=== PATIENT | female | born 1960 | race Caucasian/White ===

== ENCOUNTER 2022-01-02 15:29 | Day surgery (SDC) | payer BC, SELFPAY ==
[2022-01-02] VITALS (11 sets, daily range): BP systolic 144–177; BP diastolic 70–89; PULSE 78–90; RESP 14–20; TEMP 36.2–37.1; O2SAT 91–98; BMI 31.3
--- NOTE | 2022-01-02 15:32 | PC.NURSE ---
Dr. Don has been notified that patient has arrived from [facility] to [facility] ED
--- NOTE | 2022-01-02 15:37 | PC.NURSE ---
ED MD at
--- NOTE | 2022-01-02 15:40 | PC.NURSE ---
Dr. Don at BS
--- NOTE | 2022-01-02 15:42 | PC.NURSE ---
House notified of patient going to OR for scope
--- NOTE | 2022-01-02 15:54 | HMH.EDGENADL ---
ED Disposition Clinical Impression: Food impaction of esophagus Qualifiers: Encounter type: initial encounter Qualified Code(s): T18.128A - Food in esophagus causing other injury, initial encounter Disposition: Still a Patient Condition on Discharge: Fair Referrals: Pal Shin MD [Primary Care Provider] - - Critical Care Critical Care Time: No Attestation: On , the high probability of a clinically significant, sudden or life threatening deterioration of the following system(s) required my full and direct attention, intervention and personal management. The time I documented below is in addition to time spent performing reported procedures but includes the following listed in this critical care notation. Medical Decision Making - Medical Records Medical records reviewed: Yes: I reviewed the patient's medical records. - Brandyn Inquiry Pt receiving controlled substance: No Vital Signs: 01/02/22 15:39 Temperature 98.2 F Temperature Source Oral Pulse Rate [Left Radial] 82 Respiratory Rate 17 Blood Pressure [Right Arm] 146/82 H Blood Pressure Mean [Right Arm] 103 02 Sat by Pulse Oximetry 96 Oxygen Delivery Method Room Air Orders (Tests/Meds): ED MEDICATIONS Generic Name Dose Route Start Last Admin Trade Name Freq PRN Reason Stop Dose Admin Sodium Chloride 1,000 mls @ 999 mls/hr 01/02/22 15:45 Sod Chlor 0.9% 1000ml Bag IV 01/02/22 16:45 .Q1H1M ALIREZA Sodium Chloride 8 ml 01/02/22 15:39 Sodium Chloride 0.9% 10ml Vial IV 02/01/22 15:38 NEEDED PRN dilute pepcid Discontinued Medications Generic Name Dose Route Start Last Admin Trade Name Freq PRN Reason Stop Dose Admin Famotidine 20 mg 01/02/22 15:39 Famotidine 20mg/2ml Vial IV 01/02/22 15:40 ONCE ONE Ondansetron HCl 4 mg 01/02/22 15:39 Ondansetron 4mg/2ml Vial IV 01/02/22 15:40 ONCE ONE ORDERS Category Date Time Status Complete Blood Count Auto Diff Stat Lab 01/02/22 15:39 Ordered Comprehensive Metabolic Panel Stat Lab 01/02/22 15:39 Ordered Lipase Stat Lab 01/02/22 15:39 Ordered Medical Decision Narrative: 61-year-old female presenting with impacted food bolus. General surgery is at bedside. They will be taken the patient to the OR for endoscopy. Patient was made aware of these findings. Patient be transferred to the OR for further evaluation and treatment. General Adult HPI - General Chief complaint: Recheck/Abnormal Lab/Rx Stated complaint: vomiting,diarrhea Time Seen by Provider: 01/02/22 15:45 Mode of Arrival: Ambulatory Limitations: No Limitations Description of Symptoms (Recalled from ER Triage Doc. by RN): pt to the ed transferred from [facility]. pt states thursday evening she was eating steak and it got caught in her throat. pt states she has not been able to keep food or liquid down since thursday. pt denies trouble breathing or tightness in her throat. pt states she has has breif periods of trouble swallowing. - History of Present Illness HPI narrative: 61-year-old female presented to the emergency department with a suspected impacted food bolus. Patient was eating steak on Thursday when she felt some discomfort in her epigastric region. Patient has had multiple issues with impacted food boluses and strictures before in the past. Patient was actually seen at outlying facility and was sent here after speaking with surgery on-call for intervention. Patient arrives still continued epigastric discomfort. She is not able to tolerate oral intake. Mildly nauseous. Denies any headache or change in vision. No focal weakness. No chest pain or shortness of breath. No fevers or chills. - Related Data Previous Rx's Medication Instructions Recorded ondansetron HCl 4 mg tablet 4 mg PO TID PRN #60 tab 12/19/21 pantoprazole 40 mg tablet,delayed 40 mg PO DAILY #90 tab 12/19/21 release Allergies Allergy/AdvReac Type Severity Reaction Status Date
--- NOTE | 2022-01-02 16:06 | PC.NURSE ---
patient changed into gown and all belongings are in a bag with patients family.
--- NOTE | 2022-01-02 16:12 | PC.NURSE ---
ISA Mills at BS
[2022-01-02 16:13] LABS: Coronavirus 19, PCR Not Detected (NotDetected); Influenza A, PCR Not Detected (NotDetected); Influenza B, PCR Not Detected (NotDetected)
--- NOTE | 2022-01-02 16:14 | ECG_ITS ---
APPROVED REPORT Exam: Resting ECG HR:71 bpm ECG Measurements Heart Rate 71 AXES NE 138 P 63 QRSd 87 QRS 31 QT 417 T 46 QTc 440 Conclusion SINUS RHYTHM WITH SINUS ARRHYTHMIA MODERATE ST DEPRESSION [0.05+ mV ST DEPRESSION] ABNORMAL ECG UNCONFIRMED REPORT Electronically signed by : William Dejesus MD 01/04/2022 07:55:17
--- NOTE | 2022-01-02 17:09 | P.PCN_ITS ---
- Procedure: Date: 01/02/22 Patient Date of :: 1960 Procedure Performed:: Esophagogastroduodenoscopy Indications:: Patient is a 61-year-old female from [facility]. Primary care provider is William Shin. She states that for about a year she has had symptoms that whenever she eats anything she has difficulty with development of hiccups. She often has regurgitation and vomiting. This often last for about 12 hours. She does state that she is able to tolerate sweets. 2 days ago on 12/31/2021 she was eating steak. She has been unable to tolerate anything orally since then. She presented to [facility] in [place]. She had symptoms consistent with esophageal obstruction. Apparently there is no gastroenterology availability. Surgery was then contacted at this facility to evaluate the patient. Arrangements were made for transfer for management of esophageal obstruction. Of note, the patient was scheduled for EGD electively with Dr. Villalobos on 01/28/2022 for the symptoms as well as screening colonoscopy. Performing Provider:: Rickey Don MD Referring Provider:: William Shin MD Sedation:: General endotracheal anesthesia Procedure:: Patient was seen and examined in the emergency department. Arrangements were made for emergent endoscopy after hours. Given the longstanding duration of possible esophageal obstruction plan was made to perform this in the operating room under general anesthesia. Patient was taken to the operating room. She was maintained on the stretcher. General anesthesia was induced via endotracheal tube. Olympus endoscope was inserted via the oropharynx. Esophagus was cannulated. Overall esophagus appeared normal. Gastroesophageal junction was actually encountered at approximately 39 cm from the incisors. Just proximal to this there was a focal ring of erosive esophagitis. However there was no evidence of any obstruction or retained food bolus. Stomach was easily cannulated. There is some minor nonerosive linear gastropathy of the antrum. Stomach was desufflated and the endoscope was withdrawn. Findings:: Focal erosive esophagitis at approximately 37 to 38 cm with gastroesophageal junction at 39 cm. No esophageal food impaction/obstruction. Recommendations:: Biopsies were not performed and dilatation was not performed in this emergent setting after hours. Recommend limited diet. If patient is not on antacids needs proton pump inhibitors. Recommend repeat EGD in several weeks as an elective procedure for biopsies and possible dilatation. Complications:: None immediately apparent Estimated blood obtained (mL): 0
--- NOTE | 2022-01-02 17:15 | HMH.ANESCL ---
[facility] Anesthesia Checklist - Patient Identification Patient Identification: Arm Band - Structural Data Admitted From: Emergency Dept Planned Operative Procedure/s: EGD Consent for Planned Operative Procedure(s) Verified: Yes Verified Documents: Surgical Consent, History and Physical - NPO Status Verified Time NPO: 00:00 - Additional verifications Anesthesia Reactions: No - Airway Assessment C-Spine Mobility Assessed: Yes (mp2) TMJ Mobility Assessed: Yes Dentition: Good Dentition - Neurological Assessment Level of Consciousness: Awake, Alert - Anesthesia Plan Anesthesia Risk discussed: Yes Anesthesia Plan: Verified ASA Class: II (e) Anesthesia Type: General (Discussed plan of care with Dr. Don and Pt. It was decided to do procedure under GA d/t length of time food had been in esophagus and risk of aspiration. All in agreeance) [facility] History I have reviewed the patient's past medical history: Yes Medical History: Reports:: Atrial Fibrillation *Have you ever received a pneumonia vaccine?: No *Have you received a flu vaccine this season?: No Other Medical History: Reports: Other (Fatty liver) Anesthesia experience/problems:: nac Other Surgeries: Yes: Hysterectomy-Total Amputation: No Fractures: No - *Social History Smoking Status: Never smoker Alcohol Intake: never Substance Use Type: denies use *Occupational Status:: employed *Travel in the last 8 weeks: None Family Hx:: Heart Attack (FATHER & GRANDMOTHERS), Other (Arthritis (BROTHER)), Asthma (MOTHER)
--- NOTE | 2022-01-02 17:17 | P.PN_ITS ---
[facility] Anesthesia Record Part I Intake, IV Amount: 500 Estimated blood loss (mL): 0 Urine output (mL): 0 Blood Pressure: 146/78 SaO2: 94 Pulse Rate: 90 Respiratory Rate: 16 Temperature: 97.9 F Patient is:: Drowsy, Stable Stable to PACU at:: 17:10
--- NOTE | 2022-01-03 07:30 | HMH.ANESII ---
[facility] Anesthesia Record Part II Discharge Time: 17:40 Destination: Surgical Day Care (OP Surgery) PACU nurse assessment reviewed?: Yes Patient Condition:: Good Anesthesia Complications:: None Swallowing reflex intact?: Yes Cyanosis?: No Blood Pressure: 157/84 Pulse Rate: 78 Temperature: 98.8 F Mental Status: Alert & Oriented Pain level:: 0 Nausea and/or vomitting:: None Intake, IV Amount: 0
[2022-01-03 07:31] VITALS: BP 157/84; PULSE 78; TEMP 37.1
== END 2022-01-02 18:11 | disposition home or self-care (01) ==
LOC: ER 16:56 → SDC 16:58
PROVIDERS: Emergency Provider Emergency Medicine; PCP Family Medicine; Visit Provider Surgery
PROC: 0DJ08ZZ Inspection of Upper Intestinal Tract, Via Natural or Artificial Opening Endoscopic (ICD-10-PCS; CPT 43235; principal; 2022-01-02 17:00)
DX: K22.10 Ulcer of esophagus without bleeding (principal); I48.91 Unspecified atrial fibrillation; K76.0 Fatty (change of) liver, not elsewhere classified; Z90.710 Acquired absence of both cervix and uterus; Z82.3 Family history of stroke; Z82.61 Family history of arthritis; Z82.5 Family history of asthma and other chronic lower respiratory diseases
CPT/HCPCS: 43235; 93005; 96375; C9803; J0330; J2405; U0003; U0005

== ENCOUNTER → 2022-04-03 12:06 | Outpatient (CLI) | payer BC, SELFPAY | PROVIDERS: PCP Family Medicine; Visit Provider Surgery | DX: Z01.812 Encounter for preprocedural laboratory examination (principal); Z20.822 Contact with and (suspected) exposure to COVID-19; Z13.810 Encounter for screening for upper gastrointestinal disorder; Z12.11 Encounter for screening for malignant neoplasm of colon | CPT/HCPCS: C9803; U0003; U0005 ==

== ENCOUNTER 2022-04-04 12:44 | Observation (INO) | payer BC, OTHER, SELFPAY ==
[2022-04-01 14:15] VITALS: BMI 30.5
[2022-04-04] VITALS (16 sets, daily range): BP systolic 112–145; BP diastolic 61–82; PULSE 53–77; RESP 13–19; TEMP 35.7–37; O2SAT 95–99; BMI 31.3
--- NOTE | 2022-04-04 10:56 | HMH.GSHP ---
HPI HPI: Patient presents for followup endoscopy for dysphagia and colonoscopy for screening. She is a 61-year-old female from [facility]. Her primary care provider is William Shin MD. She has had some symptoms for about a year with apparent development of hiccups occurring postprandially with occasional regurgitation and vomiting. This often last for about 12 hours. She had been scheduled for outpatient EGD and colonoscopy by Dr. Villalobos. However, she had presented to [facility] in [place] on 01/02/2022 with symptoms of possible esophageal obstruction for a duration of 2 days after she had been eating steak on 12/31/2021. Apparently there was no gastroenterology or surgical availability in [place]. Surgery at this facility was then contacted to evaluate the patient and arrangements were made for transfer for management of presumed esophageal obstruction. Patient was taken emergently for EGD after hours in the evening of 01/02/2022. Given the duration of her symptoms and emergent nature this was done in the operating room under general anesthesia via endotracheal tube. She was found to have no evidence of any esophageal obstruction. She did have some focal erosive esophagitis at approximately 37 to 38 cm from the incisors with gastroesophageal junction at 39 cm. Erosion may have been secondary to transient retained food bolus. She also has some minor nonerosive linear gastropathy. Given the emergent nature of this biopsies and intervention such as dilatation was not performed. Patient has apparently been on pantoprazole. She has some minor symptoms mostly of cervical dysphagia. Her colonoscopy was being scheduled for initial screening purposes. I advocated a follow-up endoscopy as an elective procedure with biopsies and possible dilatation. I also discussed with her the indications for colonoscopy for screening purposes. [facility] History I have reviewed the patient's past medical history: Yes Medical History: Reports:: Atrial Fibrillation Denies:: Cancer, Diabetes Mellitus Type 1, Diabetes Mellitus Type 2, Internal Pacemaker, MRSA *Have you ever received a pneumonia vaccine?: No *Have you received a flu vaccine this season?: No Other Medical History: Reports: Other Laterality Cases: Bilateral: Tonsillectomy Other Surgeries: Yes: EGD, Hysterectomy-Total. No: Pacemaker Amputation: No Fractures: No - *Social History Last grade of school completed: GED Smoking Status: Never smoker Alcohol Intake: never Substance Use Type: denies use *Occupational Status:: employed *Travel in the last 8 weeks: None Family Hx:: Heart Attack, Other, Asthma Review of Systems - Review of Systems Review of systems:: pertinent systems reviewed and negative unless documented below Meds Home Medications Medication Instructions Recorded Confirmed Type Pantoprazole Sodium 40 mg PO DAILY 01/23/22 04/04/22 History Allergies Allergy/AdvReac Type Severity Reaction Status Date / Time No Known Allergies Allergy Verified 04/01/22 14:23 Exam I & O for Last 24 hours: Intake & Output 04/01/22 04/02/22 04/03/22 04/04/22 11:59 11:59 11:59 11:59 Weight 195 lb - Constitutional no acute distress - *Routine HEENT Exam Head: Present: normocephalic Eye: Present: EOMI, PERRL ENT: Present: mucous membranes moist - *Routine Neck Exam Present: supple. Absent: lymphadenopathy - *Routine Respiratory Exam Present: CTA bilaterally - *Routine Cardiovascular Exam Present: RRR - *Routine Abdominal Exam Present: soft, normoactive bowel sounds. Absent: tenderness - *Routine Rectal Exam Rectal:: deferred - *Routine Genitalia Exam Genitalia:: deferred - *Routine Extremities Exam Absent: cyanosis, clubbing, edema - *Routine Skin Exam Present: warm. Absent: rash - *Routine Neurological Exam Present: alert, oriented X3 Assessment and Plan - Assessment and plan all Dx Assessment and Plan for all problems::
--- NOTE | 2022-04-04 11:53 | ECG_ITS ---
APPROVED REPORT Exam: Resting ECG HR:160 bpm ECG Measurements Heart Rate 160 AXES QRSd 82 QRS 21 QT 221 T 0 QTc 310 Conclusion ATRIAL FIBRILLATION WITH RAPID VENTRICULAR RESPONSE MARKED ST DEPRESSION, CONSIDER SUBENDOCARDIAL INJURY [0.2+ mV ST DEPRESSION] ACUTE AR UNCONFIRMED REPORT Electronically signed by : William Dejesus MD 04/04/2022 21:39:27
--- NOTE | 2022-04-04 11:55 | XR_ITS ---
FINAL REPORT CLINICAL HISTORY: POSSIBLE ASPIRATION; AFIB FINDINGS: A single portable view of the chest was obtained. The heart size and pulmonary vascularity are within normal limits. The mediastinum is within normal limits. There is mild right lung base atelectasis or pneumonia. The bony thorax is intact. IMPRESSION: Mild right lung base atelectasis or pneumonia. Reviewed, Interpreted and Dictated by Rickey Patel III, MD Transcribed by Delmis Crews Authenticated and [facility]
--- NOTE | 2022-04-04 12:22 | HMH.SCOPE ---
- Procedure: Date: 04/04/22 Patient Date of :: 1960 Procedure Performed:: Esophagogastroduodenoscopy with biopsies and dilatation Indications:: Patient presents for followup endoscopy for dysphagia and colonoscopy for screening. She is a 61-year-old female from [facility]. Her primary care provider is William Shin MD. She has had some symptoms for about a year with apparent development of hiccups occurring postprandially with occasional regurgitation and vomiting. This often last for about 12 hours. She had been scheduled for outpatient EGD and colonoscopy by Dr. Villalobos. However, she had presented to [facility] in [place] on 01/02/2022 with symptoms of possible esophageal obstruction for a duration of 2 days after she had been eating steak on 12/31/2021. Apparently there was no gastroenterology or surgical availability in [place]. Surgery at this facility was then contacted to evaluate the patient and arrangements were made for transfer for management of presumed esophageal obstruction. Patient was taken emergently for EGD after hours in the evening of 01/02/2022. Given the duration of her symptoms and emergent nature this was done in the operating room under general anesthesia via endotracheal tube. She was found to have no evidence of any esophageal obstruction. She did have some focal erosive esophagitis at approximately 37 to 38 cm from the incisors with gastroesophageal junction at 39 cm. Erosion may have been secondary to transient retained food bolus. She also has some minor nonerosive linear gastropathy. Given the emergent nature of this biopsies and intervention such as dilatation was not performed. Patient has apparently been on pantoprazole. She has some minor symptoms mostly of cervical dysphagia. Her colonoscopy was being scheduled for initial screening purposes. I advocated a follow-up endoscopy as an elective procedure with biopsies and possible dilatation. I also discussed with her the indications for colonoscopy for screening purposes. Performing Provider:: Rickey Don MD Referring Provider:: William Shin MD Sedation:: MAC sedation Procedure:: Patient was taken to endoscopy procedure room. She was positioned in lateral decubitus position. Adequate intravenous sedation was achieved with anesthesia titration of propofol. Olympus endoscope was inserted via the oropharynx. Esophagus was cannulated. There was some minor cricopharyngeal spasm. There is minor tortuosity of the esophagus consistent with possible mild esophageal dysmotility. Gastroesophageal junction was encountered at approximately 39 cm. There was a minor Schatzki's ring and some distal esophagitis. Stomach was cannulated and insufflated. Retroflexion revealed no evidence of any appreciable hiatal hernia. She had some mild to moderate nonerosive diffuse gastropathy/gastritis. Gastric antral mucosal biopsy was obtained for CLOtest for H. pylori. Pylorus was traversed. In the duodenal bulb there was some minor nonerosive duodenitis. Minimal biopsy was performed. Hemoclip was placed for good hemostasis. Endoscope was then withdrawn into the stomach. Gastric mucosal biopsies obtained for histopathologic analysis. Endoscope was withdrawn into the distal esophagus. A couple biopsies were obtained at the region of esophagitis/Schatzki's ring. The Schatzki's ring was then sequentially dilated from 18 to 19 to 20 mm luminal diameter with the elation balloon dilator slowly. Please note at the completion of dilatation patient was noted to show evidence of tachycardia consistent with atrial fibrillation with rapid ventricular response. The stomach was desufflated and the endoscope was withdrawn. Patient was allowed to recover from anesthesia. She underwent twelve-lead EKG in the endoscopy room as well as portable chest x-ray. Cardiology consultation was obtained and patient was administered appropriate medications.
--- NOTE | 2022-04-04 12:36 | SUR.OPER ---
1145-Ended EGD, HR 160's-170's. monitor showing A-Fib. Payal Ramesh CRNA and Dr. Don at bedside directing care. RN x2 remain at bedside. 1153-EKG ordered per German Webster CRNA called to bedside. 1154 Respiratory at bedside for EKG. PCX ordered per Dr. Don. 1155-EKG completed and Dr. Sharma notified by respiratory. 1155-Dr. Sharma and radiology at bedside. Marianna He RN, Lily Becerra RN, Jennifer Adler RN at bedside. A-Fib noted by Dr. Sharma and directing medications to be given per anesthesia and advising Dr. Don. Pt awake, alert and oriented with no c/o of CP or SOA. Skin pink and dry. 1200-Dr. Don cancelled colonoscopy. Family updated on pt status. 1203- Dr. Don notified PCP, Dr. Shin and awaiting further orders. 1215- Dr. Sharma ordered Diltiazem drip started per Vel Doss CRNA. Pt continues to be on heart monitor, VSS. 1230 Pt transferred to post op on heart monitor for continued monitoring until further orders given. Report given to Adriana Robles RN. Family updated by German Doss CRNA and at bedside.
--- NOTE | 2022-04-04 12:36 | SUR.PHASEII ---
1230- Detailed report received from ISA Corrales. Pt currently resting in bed. A&Ox4. Pt currently in controlled afib rate of 78. Dilt gtt infusing at 15mcg/min. 1238- Spoke to Circulation Assistant Joel Porras RN. Room assignment- pt is going to room 216 1239- MD Don at bedside. Pt noted to convert to NR/sinus aleida. Rate of 54. Respiratory notified for STAT EKG 1243- RT at bedside
--- NOTE | 2022-04-04 12:46 | ECG_ITS ---
APPROVED REPORT Exam: Resting ECG HR:57 bpm ECG Measurements Heart Rate 57 AXES AL 154 P 46 QRSd 82 QRS 8 QT 420 T 39 QTc 413 Conclusion SINUS BRADYCARDIA BORDERLINE ECG UNCONFIRMED REPORT Electronically signed by : William Dejesus MD 04/04/2022 21:39:21
--- NOTE | 2022-04-04 12:48 | P.CONPHA_ITS ---
[facility] Pharmacy VTE Monitoring - Patient Demographics Admission date: 04/04/22 Report Date: 04/04/22 Time: 12:48 Allergies/Adverse Reactions: Patient Allergies No Known Allergies Allergy (Verified 04/01/22 14:23) Height: 1.7 m Weight: 88.451 kg - Prophylaxis VTE Prophylaxis Ordered?: Yes Types of VTE Prophylaxis: TEDS Knee High Location of Applied Device: Bilateral Lower Extremeties
--- NOTE | 2022-04-04 12:48 | HMH.PHAINT ---
MEDICATION RECONCILIATION COMPLETED ON PATIENT USING EXTERNAL FILL HISTORY FROM PHARMACY. -TAMIA BILLS, KIRTD
--- NOTE | 2022-04-04 13:03 | P.PN_ITS ---
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.: Yes Urinary Incontinence: None - Anesthesia Plan Anesthesia Risk discussed: Yes ASA Class: II Anesthesia Type: IV sedation [facility] History I have reviewed the patient's past medical history: Yes Medical History: Reports:: Arrhythmia, Atrial Fibrillation Denies:: Cancer, Diabetes Mellitus Type 1, Diabetes Mellitus Type 2, Internal Pacemaker, MRSA, Seizures *Have you ever received a pneumonia vaccine?: No *Have you received a flu vaccine this season?: No Other Medical History: Reports: Other Anesthesia experience/problems:: NAC Laterality Cases: Bilateral: Tonsillectomy Other Surgeries: Yes: EGD, Hysterectomy-Total. No: Pacemaker Amputation: No Fractures: No - *Social History Last grade of school completed: GED Smoking Status: Never smoker Alcohol Intake: never Substance Use Type: denies use *Occupational Status:: employed *Travel in the last 8 weeks: None Family Hx:: Heart Attack, Other, Asthma
--- NOTE | 2022-04-04 13:31 | SUR.PHASEII ---
1250- Spoke to Jennifer Hamlin APRN notified of pt converting to sinus aleida. Defer to cardiology for additional orders 1255- Spoke to Joel Hylton APRN TO for 120mg of PO dilt x1 NOW. 1310- PO dilt administered at this time 1320- Detailed report given to Alanna Ramos RN 1325- Pt transported to room 216 by this RN and Lily Becerra RN. Family at bedside, all questions answered.
--- NOTE | 2022-04-04 14:00 | P.CONS_ITS ---
History of Present Illness Consult date: 04/04/22 Consult reason: atrial fibrillation Chief complaint: of A. fib Additional Medical History:: Significant past medical history: Proximal A. fib 1 episode followed by Simone Fuentes Gastric reflux History of present illness: 61 year old white female with above past medical history presented outpatient for EGD and developed A. fib RVR with rate of 160 during procedure. Patient reports she does have a history of 1 previous episode of A. fib has been evaluated by Dr. Simone Fuentes cardiology and states they were unable to find any cause of the A. fib. Patient was started on dilt drip and has since converted to normal sinus rhythm. She denies any chest pain shortness of breath palpitations or lower extremity edema. [facility] History Medical History: Reports:: Arrhythmia, Atrial Fibrillation Denies:: Cancer, Diabetes Mellitus Type 1, Diabetes Mellitus Type 2, Internal Pacemaker, MRSA, Seizures *Have you ever received a pneumonia vaccine?: No *Have you received a flu vaccine this season?: No Other Medical History: Reports: Other Anesthesia experience/problems:: NAC Laterality Cases: Bilateral: Tonsillectomy Other Surgeries: Yes: EGD, Hysterectomy-Total. No: Pacemaker Amputation: No Fractures: No - *Social History Last grade of school completed: GED Smoking Status: Never smoker Alcohol Intake: never Substance Use Type: denies use *Occupational Status:: employed *Travel in the last 8 weeks: None Family Hx:: Heart Attack, Other, Asthma Meds Home Medications Medication Instructions Recorded Confirmed Type Pantoprazole Sodium 40 mg PO DAILY 01/23/22 04/04/22 History Allergies Allergy/AdvReac Type Severity Reaction Status Date / Time No Known Allergies Allergy Verified 04/01/22 14:23 Exam Vital signs and Labs for Last 24 Hours: Temp Pulse Resp BP Pulse Ox 98.5 F 77 18 145/82 H 98 04/04/22 10:56 04/04/22 10:56 04/04/22 10:56 04/04/22 10:56 04/04/22 10:56 I & O for Last 24 hours: Intake & Output 04/01/22 04/02/22 04/03/22 04/04/22 23:59 23:59 23:59 23:59 Intake Total 240 / 240 Balance 240 / 240 Weight 195 lb - *Routine Respiratory Exam Present: CTA bilaterally - *Routine Cardiovascular Exam Present: RRR - *Routine Extremities Exam Absent: cyanosis, clubbing, edema Review of Systems - *Cardiovascular Denies chest pain, Denies shortness of breath Assessment and Plan (1) A-fib Status: Acute Category: Medical Code(s): I48.91 - Unspecified atrial fibrillation - Assessment and plan all Dx Assessment and Plan for all problems:: Paroxysmal Afib Chadsvasc score 1 -Converted to normal sinus rhythm with dilt drip. -Start diltiazem extended release 120 mg daily -Echo pending CV summary: If remains in normal sinus rhythm and echo is normal patient can be DC'd home in the a.m. on diltiazem 120 mg daily with 1 week office follow-up.
--- NOTE | 2022-04-04 14:11 | CA_ITS ---
APPROVED REPORT EXAM: Comprehensive 2D, Doppler, and color-flow Echocardiogram Load Out Supervisor: Mira Ruggiero RVT Ht: 5 ft 7 in Wt: 195lbs BSA: 2.00 BP: 145/82 mmHg Indications: A-FIB DURING SCOPE 2D Dimensions LVOT 2.06 cm (M/F) 1.5-2.5 LA Volume 44.70 mL LA Volume Index 22.35 mL/m2 (M/F) 16-34 M-Mode Dimensions RVDd 2.05 cm (0.9-2.6) LA Diam 4.17 cm (1.9-4.0) LVDd 5.09 cm (3.5-5.7) Ao Diam 3.14 cm (2.0-3.7) LVDs 3.72 cm (3.5-5.7) IVSd 0.93 cm (0.6-1.1) PWd 0.82 cm (0.6-1.1) EF (Teich) 52.20% FS 26.90% EDV (Teich) 123.20 mL TAPSE 2.30 (<1.7) ESV (Teich) 58.90 mL LV Diastology E Decel Time 193.00 (160-240 msec) E/A Ratio 1.1 MED E' 7.70 (< 7 cm/sec) E'/MED E' Ratio 10.53 (>14) LAT E' 10.50 (<10 cm/sec) E/LAT E' Ratio 7.72 (>14) Aortic Valve AO Peak GR. 6.30 mmHg Mitral Valve MV E Max Ten. 81.00 (40-130 cm/s) MV A Velocity 74.00 (40-130 cm/s) E/A Ratio 1.09 MV Decel. Time 193.00 (160-240 ms) MV PHT 57.00 ms Pulmonary Valve PV Peak Velocity 73.00 (50-150 cm/s) Tricuspid Valve TR P. Velocity 160.00 cm/s RAP Estimate 10.00 mmHg RVSP 20.20 mmHg Left Ventricle Left atrium is normal size, left ventricle is normal size, estimated ejection fraction 55% with no regional wall motion abnormality, diastolic parameters are within normal range. Right Ventricle Right atrium and right ventricle are normal size and contractility. Aortic Valve Aortic valve is minimally thickened and fibrosed there is no aortic stenosis or aortic insufficiency. Mitral Valve Mitral valve is grossly normal, there is trace mitral regurgitation. Tricuspid Valve Tricuspid valve grossly normal, there is trace tricuspid regurgitation, tricuspid regurgitation jet velocity is inadequate for calculation of the right ventricular systolic pressure. Pulmonic Valve Pulmonic valve is poorly visualized. Great Vessels Aortic root is normal size. Inferior vena cava is mildly dilated without significant inspiratory collapse. Pericardium No significant pericardial effusion noted. Conclusion 1. Normal left ventricular size, preserved left ventricular systolic function, estimated ejection fraction 55% with no regional wall motion abnormality, diastolic parameters are within normal range. 2. Trace mitral and tricuspid regurgitation. 3. No significant pericardial effusion noted. 4. Inferior vena cava is mildly dilated without significant inspiratory collapse. Electronically signed by : Cesar Du MD 04/04/2022 15:06:19
--- NOTE | 2022-04-04 14:23 | PC.NURSE ---
Diltiazem gtt turned OFF at this time. NSR with rate 60s on tele.
--- NOTE | 2022-04-04 18:07 | PC.NURSE ---
Addendum entered by Nile Serna 04/04/22 18:11: LR Infusing at 100ml/hr Original Note: Patient alert and oriented x4, patient admitted from surgery post-op due to going into a-fib, started on a cardizem gtt, and converted to normal sinus rhythm, hr 68, bp 126/70, cardizem gtt currently stopped. Up without assistance, no complaints at this time. VSS on room air with O2 sat 96%. Tolerating a cardiac diet.
[2022-04-05] VITALS: BP 132/73; PULSE 61; PULSE 66; RESP 16; O2SAT 97
[2022-04-05 02:00] VITALS: BP 94/42; PULSE 60; RESP 20; O2SAT 95
[2022-04-05 04:00] VITALS: TEMP 36.9
[2022-04-05 04:26] VITALS: BMI 31.7
[2022-04-05 06:00] VITALS: BP 143/101; PULSE 59; PULSE 60; RESP 13; O2SAT 96
[2022-04-05 08:00] VITALS: BP 122/60; PULSE 63; RESP 18; TEMP 36.7; O2SAT 96
--- NOTE | 2022-04-05 09:26 | HMH.HPDC ---
General - General Admission date:: 04/04/22 Discharge date: 04/05/22 *Admission Date: 04/04/22 *Chief complaint: a fib *History of present illness: this patient dev acute a fib with rpr after egd and was admitted for treatment and card eval-patient presents for followup endoscopy for dysphagia and colonoscopy for screening. She is a 61-year-old female from [facility]. Her primary care provider is William Shin MD. She has had some symptoms for about a year with apparent development of hiccups occurring postprandially with occasional regurgitation and vomiting. This often last for about 12 hours. She had been scheduled for outpatient EGD and colonoscopy by Dr. Villalobos. However, she had presented to [facility] in [place] on 01/02/2022 with symptoms of possible esophageal obstruction for a duration of 2 days after she had been eating steak on 12/31/2021. Apparently there was no gastroenterology or surgical availability in [place]. Surgery at this facility was then contacted to evaluate the patient and arrangements were made for transfer for management of presumed esophageal obstruction. Patient was taken emergently for EGD after hours in the evening of 01/02/2022. Given the duration of her symptoms and emergent nature this was done in the operating room under general anesthesia via endotracheal tube. She was found to have no evidence of any esophageal obstruction. She did have some focal erosive esophagitis at approximately 37 to 38 cm from the incisors with gastroesophageal junction at 39 cm. Erosion may have been secondary to transient retained food bolus. She also has some minor nonerosive linear gastropathy. Given the emergent nature of this biopsies and intervention such as dilatation was not performed. Patient has apparently been on pantoprazole. She has some minor symptoms mostly of cervical dysphagia. Her colonoscopy was being scheduled for initial screening purposes. I advocated a follow-up endoscopy as an elective procedure with biopsies and possible dilatation. I also discussed with her the indications for colonoscopy for screening purposes. remi luna was taken to endoscopy procedure room. She was positioned in lateral decubitus position. Adequate intravenous sedation was achieved with anesthesia titration of propofol. Olympus endoscope was inserted via the oropharynx. Esophagus was cannulated. There was some minor cricopharyngeal spasm. There is minor tortuosity of the esophagus consistent with possible mild esophageal dysmotility. Gastroesophageal junction was encountered at approximately 39 cm. There was a minor Schatzki's ring and some distal esophagitis. Stomach was cannulated and insufflated. Retroflexion revealed no evidence of any appreciable hiatal hernia. She had some mild to moderate nonerosive diffuse gastropathy/gastritis. Gastric antral mucosal biopsy was obtained for CLOtest for H. pylori. Pylorus was traversed. In the duodenal bulb there was some minor nonerosive duodenitis. Minimal biopsy was performed. Hemoclip was placed for good hemostasis. Endoscope was then withdrawn into the stomach. Gastric mucosal biopsies obtained for histopathologic analysis. Endoscope was withdrawn into the distal esophagus. A couple biopsies were obtained at the region of esophagitis/Schatzki's ring. The Schatzki's ring was then sequentially dilated from 18 to 19 to 20 mm luminal diameter with the elation balloon dilator slowly. Please note at the completion of dilatation patient was noted to show evidence of tachycardia consistent with atrial fibrillation with rapid ventricular response. The stomach was desufflated and the endoscope was withdrawn. Patient was allowed to recover from anesthesia. She underwent twelve-lead EKG in the endoscopy room as well as portable chest x-ray. Cardiology consultation was obtained and patient was administered appropriate medications. Given the scenario routine initial screening
--- NOTE | 2022-04-07 15:10 | CARE MANAGER ---
Spoke with patient for post-discharge follow-up, she states that she is doing well and has no concerns at this time.
== END 2022-04-05 10:17 | disposition home or self-care (01) ==
LOC: 2ND 12:44
PROVIDERS: Surgery; Admitting Provider Family Medicine; PCP Family Medicine; Visit Provider Family Medicine
PROC: 0DJ08ZZ Inspection of Upper Intestinal Tract, Via Natural or Artificial Opening Endoscopic (ICD-10-PCS; CPT 43235; principal; 2022-04-04 12:30)
DX: K29.80 Duodenitis without bleeding (principal); K22.2 Esophageal obstruction; K31.89 Other diseases of stomach and duodenum; I48.91 Unspecified atrial fibrillation
CPT/HCPCS: 43239; 43249; 71045; 87339; 93005; 93306; C1726; C9803; G0378; U0003; U0005

== ENCOUNTER → 2022-04-14 11:40 | Outpatient (CLI) | payer BC, SELFPAY | PROVIDERS: PCP Family Medicine; Visit Provider Nurse Practitioner | DX: R00.2 Palpitations (principal) | CPT/HCPCS: 93270 ==

== ENCOUNTER 2022-04-14 15:37 | Emergency (ER) | payer BC, SELFPAY ==
[2022-04-14] VITALS (8 sets, daily range): BP systolic 123–150; BP diastolic 76–90; PULSE 69–165; RESP 18–23; TEMP 36.7–36.9; O2SAT 95–99; BMI 31.3
--- NOTE | 2022-04-14 15:59 | ECG_ITS ---
APPROVED REPORT Exam: Resting ECG HR:164 bpm ECG Measurements Heart Rate 164 AXES QRSd 116 QRS 10 QT 280 T 267 QTc 370 Conclusion ATRIAL FLUTTER/TACHYCARDIA WITH RAPID VENTRICULAR RESPONSE MODERATE INTRAVENTRICULAR CONDUCTION DELAY [110+ ms QRS DURATION] ST DEVIATION AND MODERATE T-WAVE ABNORMALITY, CONSIDER INFERIOR ISCHEMIA [-0.1+ mV T-WAVE IN II/aVF] CRITICAL TEST RESULT UNCONFIRMED REPORT Electronically signed by : William Dejesus MD 04/15/2022 21:25:49
--- NOTE | 2022-04-14 16:19 | XR_ITS ---
PROCEDURE INFORMATION: Exam: XR Chest Exam date and time: 04/14/2022 4:32 PM Age: 61 years old Clinical indication: Other: Tachycardia; Prior surgery; Additional info: Rapid heart rate TECHNIQUE: Imaging protocol: Radiologic exam of the chest. Views: 1 view. COMPARISON: CR XR CHEST PORTABLE 04/04/2022 11:56 AM FINDINGS: Lungs: Hyperexpanded lung yen consistent with COPD. Pleural spaces: Unremarkable. No pleural effusion. No pneumothorax. Heart/Mediastinum: Unremarkable. No cardiomegaly. Bones/joints: Unremarkable. IMPRESSION: Hyperexpanded lung yen consistent with COPD.
[2022-04-14 16:29] LABS: Basophils # 0.1 K/mm3 (0-0.2); Basophils % 1.1 % (0.1-2.0); Eosinophils # 0.2 K/mm3 (0.0-0.4); Eosinophils % 3.1 % (0.1-12.0); Hematocrit 45.5 % (37.0-47.0); Hemoglobin 14.2 g/dL (12.2-16.2); Lymphocytes # 2.1 K/mm3 (0.7-4.5); Lymphocytes % 29.4 % (10-50); Mean Corpuscular HGB Conc 31.2 g/dL (31.8-35.4); Mean Corpuscular Hemoglobin 28.9 pg (27.0-31.2); Mean Corpuscular Volume 92.7 fl (81-99); Mean Platelet Volume 8.2 fl (7.4-10.4); Monocytes # 0.4 K/mm3 (0.1-1.0); Monocytes % 5.9 % (1.7-9.3); Neutrophils # 4.3 K/mm3 (1.8-7.8); Neutrophils % 60.4 % (37.0-80.0); Platelet Count 237 K/mm3 (142-424); White Blood Count 7.2 K/mm3 (4.8-10.8)
--- NOTE | 2022-04-14 16:32 | HMH.EDARPALP ---
ED Disposition Clinical Impression: Atrial fibrillation and flutter, Atrial fibrillation with rapid ventricular response Disposition: Home, Self-Care Condition on Discharge: Good Additional Instructions: Patient diltiazem to 240 mg daily. Follow-up tomorrow with the florist designer. Prescriptions: RX: bisoproloL fumarate [Bisoprolol Fumarate] 10 mg PO DAILY #30 tab Transmission Status: Pending to [facility] Referrals: Pal Shin MD [Primary Care Provider] - - Critical Care Critical Care Time: No Attestation: On 04/14/22, the high probability of a clinically significant, sudden or life threatening deterioration of the following system(s) required my full and direct attention, intervention and personal management. The time I documented below is in addition to time spent performing reported procedures but includes the following listed in this critical care notation. Medical Decision Making - Medical Records Medical records reviewed: Yes: I reviewed the patient's medical records. - Brandyn Inquiry Pt receiving controlled substance: No Vital Signs: 04/14/22 15:38 04/14/22 16:26 04/14/22 16:30 Temperature 98.4 F Temperature Source Oral Pulse Rate 102 H 92 H Pulse Rate [Apical] 165 H Respiratory Rate 18 19 Blood Pressure 147/77 H 137/77 Blood Pressure [Right Arm] 150/84 H Blood Pressure Mean 93 93 Blood Pressure Mean [Right Arm] 106 Blood Pressure Source [Right Arm] Automatic Cuff Blood Pressure Position [Right Arm] Sitting 02 Sat by Pulse Oximetry 98 98 99 Oxygen Delivery Method Room Air Room Air Room Air 04/14/22 16:48 Temperature Temperature Source Pulse Rate Pulse Rate [Apical] Respiratory Rate Blood Pressure 132/80 Blood Pressure [Right Arm] Blood Pressure Mean 86 Blood Pressure Mean [Right Arm] Blood Pressure Source [Right Arm] Blood Pressure Position [Right Arm] 02 Sat by Pulse Oximetry Oxygen Delivery Method - Lab Data Lab Results 04/14/22 16:05: WBC 7.2, RBC 4.90, Hgb 14.2, Hct 45.5, MCV 92.7, MCH 28.9, MCHC 31.2 L, RDW 14.0, Plt Count 237, MPV 8.2, Neut % (Auto) 60.4, Lymph % (Auto) 29.4, Grady % (Auto) 5.9, Eos % (Auto) 3.1, Baso % (Auto) 1.1, Neut # (Auto) 4.3, Lymph # (Auto) 2.1, Grady # (Auto) 0.4, Eos # (Auto) 0.2, Baso # (Auto) 0.1 04/14/22 16:05: Sodium 140, Potassium 3.8, Chloride 104, Carbon Dioxide 27, Anion Gap 12.8, BUN 11, Creatinine 0.70, Estimated Creat Clear 122, Estimated GFR 85, Est GFR ( Amer) 103, Glucose 107 H, Calcium 9.1, Troponin I < 0.01 Result diagrams: 04/14/22 16:05 04/14/22 16:05 Orders (Tests/Meds): ED MEDICATIONS Generic Name Dose Route Start Last Admin Trade Name Freq PRN Reason Stop Dose Admin Sodium Chloride 10 ml 04/14/22 16:19 Sodium Chloride 0.9% 10ml Flush Syringe IV 05/14/22 16:18 NEEDED PRN Maintain IV Site Discontinued Medications Generic Name Dose Route Start Last Admin Trade Name Freq PRN Reason Stop Dose Admin Metoprolol Tartrate 5 mg 04/14/22 16:32 04/14/22 16:41 Metoprolol Tartrate 5mg/5ml Vial IV 04/14/22 16:33 5 mg ONCE ONE Administration ORDERS Category Date Time Status Troponin I Q3H Lab 04/14/22 19:30 Ordered Troponin I Q3H Lab 04/14/22 22:30 Ordered Arrhythmia/Palpitations HPI - General Chief Complaint: Arrhythmia/Palpitations Stated Complaint: heart flutter, possible afib Time Seen by Provider: 04/14/22 16:32 Mode of Arrival: Ambulatory Limitations: No Limitations - History of Present Illness HPI narrative: Presents complaint of rapid heart rate that was first noted today. Symptoms are described as moderate and without exacerbating alleviating factors. She denies associated chest pain or shortness of air. - Related Data Previous Rx's Medication Instructions Recorded RX: dilTIAZem HCL [Cardizem CD 120 mg PO DAILY #30 cap 04/05/22 120mg Cap] RX: bisoproloL fumarate 10 mg PO DAILY #30 tab 04/14/22 [Bisoprol
[2022-04-14 16:35] LABS: Anion Gap 12.8 mEq/L (5-15); Blood Urea Nitrogen 11 mg/dl (7-17); Calcium 9.1 mg/dl (8.4-10.2); Carbon Dioxide 27 mmol/L (22.0-30.0); Chloride 104 mmol/L (98-107); Creatinine Clearance Estimated 122 mL/min (50-200); Estimated Glomerular Filt Rate 85 ml/min (>60); GFR (African American) 103 ML/MIN (>60); Glucose 107 mg/dl (74-100); Potassium 3.8 mmoL/L (3.5-5.1); Sodium 140 mmol/L (136-145)
[2022-04-14 16:56] LABS: Troponin I < 0.01 ng/ml (0.00-0.034)
--- NOTE | 2022-04-14 19:01 | PC.NURSE ---
DWAIN Ayala speaking with dr. gutierrez
[2022-04-14 20:20] LABS: Troponin I < 0.01 ng/ml (0.00-0.034)
== END 2022-04-14 20:15 | disposition home or self-care (01) ==
PROVIDERS: Emergency Provider Emergency Medicine; PCP Family Medicine
DX: I48.91 Unspecified atrial fibrillation (principal); R00.2 Palpitations; J98.4 Other disorders of lung; Z79.01 Long term (current) use of anticoagulants; Z79.890 Hormone replacement therapy; Z87.891 Personal history of nicotine dependence; Z82.49 Family history of ischemic heart disease and other diseases of the circulatory system
CPT/HCPCS: 71045; 80048; 84484; 85025; 93005; 96374; 99284; 99285

== ENCOUNTER → 2022-04-18 06:53 | Outpatient (CLI) | payer BC, SELFPAY | PROVIDERS: PCP Family Medicine; Visit Provider Nurse Practitioner | DX: I48.91 Unspecified atrial fibrillation (principal) | CPT/HCPCS: 78452; 93017; A9502; J2785 ==

== ENCOUNTER → 2022-04-30 13:01 | Outpatient (CLI) | payer BC, SELFPAY ==
[2022-04-30 14:28] LABS: Alanine Aminotransferase 15 U/L (12-78); Albumin Level 4.6 g/dl (3.5-5.0); Alkaline Phosphatase 92 U/L (38-126); Aspartate Amino Transferase 22 U/L (14-36); Bilirubin,Direct 0.2 mg/dl (0.0-0.4); Bilirubin,Indirect 1.1 mg/dL (0.0-0.9); Bilirubin,Total 1.3 mg/dl (0.2-1.3); Bilirubin,Unconjugated 1.1 mg/dL (0.0-1.1); Chol/HDL Ratio 4.2 (1-3.5); Cholesterol 241 mg/dl (140-200); HDL Cholesterol 58 mg/dl (40-60); Total Protein,Serum 7.5 g/dl (6.3-8.2); Triglycerides 245 mg/dl (30-150); VLDL Cholesterol 49 mg/dL (0-40)
[2022-04-30 14:45] LABS: Free T4 (Free Thyroxine) 1.16 ng/dl (0.78-2.19)
[2022-05-02 09:12] LABS: Direct LDL Cholesterol 137 mg/dL (100-129)
== END ==
PROVIDERS: PCP Family Medicine; Visit Provider Internal Medicine
DX: I48.19 Other persistent atrial fibrillation (principal); I48.92 Unspecified atrial flutter
CPT/HCPCS: 36415; 80061; 80076; 84439; 84443

== ENCOUNTER → 2024-04-11 08:12 | Outpatient (CLI) | payer BC, SELFPAY | LOC: SL 08:13 | PROVIDERS: PCP Family Medicine; Visit Provider Physician Assistant | DX: R06.83 Snoring (principal) | CPT/HCPCS: G0399 ==

== ENCOUNTER 2024-05-14 14:24 | Emergency (ER) | payer BC, SELFPAY ==
--- NOTE | 2024-05-14 14:40 | ED_ITS ---
Discharge Plan Disposition Patient Disposition: Home, Self-Care Condition: Good Prescriptions Prescriptions: New nitrofurantoin monohyd/m-cryst [Macrobid] 100 mg Capsule 100 mg PO BID Qty: 10 0RF Rx Instructions: must administer with a meal/food No Action meclizine [Antivert] 50 mg tablet 50 mg PO BID PRN (Reason: dizziness) Qty: 60 3RF pantoprazole 40 mg tablet,delayed release (DR/EC) 40 mg PO DAILY Qty: 90 3RF sotalol 80 mg tablet 80 mg PO BID Qty: 60 3RF rosuvastatin 40 mg tablet See Rx Instructions .ROUTE .COMPLEX Qty: 90 3RF Dose Instruction: TAKE 1 TABLET BY MOUTH DAILY Rx Instructions: TAKE 1 TABLET BY MOUTH DAILY Xarelto 20 mg tablet 20 mg PO DAILY Qty: 90 1RF Rx Instructions: must administer with evening meal Referrals Follow up/Referrals: Pal Shin MD [Primary Care Provider] - See instructions Activity Restrictions/Add. Instructions Additional Instructions/Restrictions: Drink plenty of fluids. Take tylenol or ibuprofen for pain or fever. Take the medications as directed. Follow up with your regular doctor. GO TO THE ER FOR ANY WORSENING SYMPTOMS We will culture the urine. That will tell what bacteria is causing your infection and which antibiotics will treat it best.This test takes 3 days to complete. Clinical Impressions Clinical Impression: UTI (urinary tract infection), Hematuria Instructions Patient Instructions: Urine Culture, DI for Urinary Tract Infection (UTI), Nitrofurantoin Print Language Print Language: [place] Discharge ED Provider: Moose May [facility] General Stated complaint: blood in urine Time Seen by Provider: 05/14/24 14:40 Related Data Previous Rx's ?Medication ?Instructions ?Recorded sotalol 80 mg tablet 80 mg PO BID #60 tabs 10/22/23 rivaroxaban 20 mg tablet (Xarelto) 20 mg PO DAILY #90 tabs 01/06/24 rosuvastatin 40 mg tablet See Rx Instructions .Route 01/06/24 .COMPLEX #90 tabs meclizine 50 mg tablet (Antivert) 50 mg PO BID PRN dizziness #60 tabs 01/14/24 pantoprazole 40 mg tablet,delayed 40 mg PO DAILY acid reflux #90 tabs 01/14/24 release nitrofurantoin 100 mg PO BID #10 caps 05/14/24 monohydrate/macrocrystals 100 mg capsule (Macrobid) Allergies Allergy/AdvReac Type Severity Reaction Status Date / Time No Known Allergies Allergy Verified 03/10/24 13:15 [facility] Disclaimer: The information contained in this section may have been updated after the patient was seen, as this information can be updated by other users. 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 current occupational exposures/hazards: Yes caffeine: Yes ROS Obtained: Yes All systems reviewed & no additional complaints except as documented Constitutional Constitutional: Reports system reviewed and no additional complaints, except as documented, Denies chills and Denies fever(s) Eyes Eyes: Denies eye discharge ENT Ears, Nose, Mouth, and Throat: Denies dysphagia, Denies sore throat and Denies throat swelling Cardiovascular Cardiovascular: Denies chest pain and Denies dyspnea Respiratory Respiratory: Denies chest congestion, Denies cough and Denies dyspnea Gastrointestinal Gastrointestingal: Denies abdominal pain, constipation, diarrhea, dysphagia, nausea or vomiting Genitourinary Female Genitourinary: Reports as per HPI, Reports dysuria, Reports urinary frequency, Denies urinary incontinence, Reports urinary hesitancy and Reports urinary urgency Musculoskeletal Musculoskeletal: Denies arthralgias and Reports back pain Integumentary/Breasts Skin/Breast: Denies rash Neurologic Neurologic: Denies paresthesias Allergic/Immunologic Allergic/Immunologic: Denies throat swelling Physical Exam General General appearance: alert and in no apparent distress Head Head exam: atraumatic and normocephalic Eye Eye exam: Present normal appearance, PERRL and EOMI ENT ENT exam: Present normal exam, mucous membranes moist, TM's normal bilaterally and normal external ear exam Neck Neck exam: Present normal inspection, full ROM and trachea midline; Absent tenderness, meningismus or lymphadenopathy Chest Chest inspection: Present normal inspection and symmetric chest wall rise; Absent tenderness Respiratory Respiratory exam: Present normal lung sounds bilaterally; Absent respiratory distress, wheezes or stridor Cardiovascular Cardiovascular exam: Present regular rate, normal rhythm and normal heart sounds Abdominal Exam Abdominal exam: Present soft and normal bowel sounds; Absent distention, tenderness, guarding, rebound, rigidity, incision, psoas sign, obturator sign, heel tap sign, Constantino's sign, Rovsing's sign or tenderness at McBurney's Point Extremities Exam Extremities exam: Present normal inspection, full ROM and normal capillary refill; Absent tenderness, edema, joint swelling, calf tenderness or cyanosis Back Exam Back exam: Present normal inspection and full ROM; Absent tenderness, CVA tenderness (R) or CVA tenderness (L) Neurological Exam Neurological exam: Present alert, oriented X3 and normal gait Psychiatric Psychiatric exam: Present normal affect and normal mood Skin Skin exam: Present warm, dry, intact and normal color Lymphatic Lymphatic Findings: no adenopathy Medical Decision Making Medical Records Medical records reviewed: No I reviewed the patient's medical records. Screening: Per USPSTF and CDC recommendations, given the prevalence of disease in our region, it is our hospital?s policy to screen for HIV and viral Hepatitis for all patients aged 18 and over and those with ongoing risk factors. Brandyn Inquiry Pt receiving controlled substance: No Lab Data Lab results reviewed: Yes I reviewed the patient's lab results.
[2024-05-14 14:43] VITALS: BP 152/69; PULSE 56; RESP 16; TEMP 36.6; O2SAT 99; BMI 34.1
[2024-05-14 14:53] LABS: Apearance,Urine Cloudy (Clear); Bilirubin,Urine 3+ (Negative); Blood, Urine 4+ (Negative); Color,Urine Red (Yellow); Glucose,Urine (UA) 100 (Negative); Ketones,Urine 15 (Negative); PH,Urine 5.5 (5.0-8.5); Protein,Urine 3+ (Negative); Specific Gravity, Urine 1.015 (1.005-1.030)
[2024-05-14 14:54] LABS: UTC Leukocyte Esterase,Urine 3+ (Negative); UTC Nitrate,Urine Positive (Negative); Urobilinogen,Urine >=8 EU/dl (0.2)
[2024-05-14] MEDS: LIDOCAINE 1% 5ML PF VIAL IM (15:00)
[2024-05-14] MEDS: cefTRIAXone 1GM VIAL 1 GM IM (15:00)
[2024-05-14 15:17] VITALS: BP 152/69; PULSE 56; RESP 16; TEMP 36.6; O2SAT 99
== END 2024-05-14 15:18 | disposition home or self-care (01) ==
PROVIDERS: Emergency Provider Nurse Practitioner Family; PCP Family Medicine
DX: N39.0 Urinary tract infection, site not specified (principal); B96.1 Klebsiella pneumoniae [K. pneumoniae] as the cause of diseases classified elsewhere; R31.9 Hematuria, unspecified
CPT/HCPCS: 81003; 87086; 87088; 87186; 96372; 99204; 99212; G0463; J0696

== ENCOUNTER 2024-10-19 15:41 | Emergency (ER) | payer OTHER, SELFPAY ==
[2024-10-19] VITALS (8 sets, daily range): BP systolic 113–141; BP diastolic 58–76; PULSE 74–80; RESP 16–24; TEMP 36.6–36.7; O2SAT 95–98; BMI 34.4
--- NOTE | 2024-10-19 15:48 | ECG_ITS ---
APPROVED REPORT Exam: Resting ECG HR:74 bpm ECG Measurements Heart Rate 74 AXES NE 148 P 72 QRSd 80 QRS 30 QT 385 T 53 QTc 412 Conclusion SINUS RHYTHM NORMAL ECG Electronically signed by : KENNEDY ROWLAND, 10/20/2024 07:07:18
--- NOTE | 2024-10-19 15:48 | XR_ITS ---
PROCEDURE INFORMATION: Exam: XR Chest Exam date and time: 10/19/2024 4:08 PM Age: 64 years old Clinical indication: Tachypnea; Additional info: Afib rvr SOA TECHNIQUE: Imaging protocol: Radiologic exam of the chest. Views: 1 view. COMPARISON: CR XR CHEST PORTABLE 04/14/2022 4:32 PM FINDINGS: Lungs: Normal. Pleural spaces: Normal. No pleural effusion. No pneumothorax. Heart/Mediastinum: Mildly enlarged cardiac silhouette is likely secondary to technique. Bones/joints: Unremarkable. IMPRESSION: No acute findings.
--- NOTE | 2024-10-19 15:59 | ED_ITS ---
Discharge Plan Disposition Patient Disposition: Home, Self-Care Prescriptions Prescriptions: New verapamil 240 mg capsule,ext rel. pellets 24 hr 240 mg PO DAILY Qty: 6 0RF No Action pantoprazole 40 mg tablet,delayed release (DR/EC) 40 mg PO DAILY Qty: 90 3RF prednisone 20 mg tablet 20 mg PO DAILY Qty: 10 0RF sotalol 80 mg tablet 80 mg PO BID Qty: 60 3RF rosuvastatin 40 mg tablet See Rx Instructions .ROUTE .COMPLEX Qty: 90 3RF Dose Instruction: TAKE 1 TABLET BY MOUTH DAILY Rx Instructions: TAKE 1 TABLET BY MOUTH DAILY Xarelto 20 mg tablet See Rx Instructions .ROUTE .COMPLEX Qty: 90 3RF Dose Instruction: TAKE 1 TABLET BY MOUTH DAILY MUST ADMINISTER WITH EVENING MEAL Rx Instructions: TAKE 1 TABLET BY MOUTH DAILY MUST ADMINISTER WITH EVENING MEAL Referrals Follow up/Referrals: Prince Sharma MD [Staff Physician] - See instructions Pal Shin MD [Primary Care Provider] - See instructions Activity Restrictions/Add. Instructions Additional Instructions/Restrictions: At this time it was felt you are safe to be discharged home. If new or worsening symptoms please do not hesitate to return the emergency department. Please take your medication as prescribed on top of your sotalol and present Thursday morning by Dr. Sharma's office for continued evaluation, tell them that you were in the ER and Dr. Sharma wanted you seen. Clinical Impressions Clinical Impression: Atrial flutter with rapid ventricular response Print Language Print Language: Greenlandic Discharge ED Provider: Brandt hCau General Adult HPI General Chief complaint: Arrhythmia/Palpitations Stated complaint: assent by phy- Heart rate 150 Time Seen by Provider: 10/19/24 15:44 Mode of Arrival: Wheelchair Source of Information: Patient Limitations: No Limitations Description of Symptoms (Recalled from ER Triage Doc. by RN): Sent from cardiology. Patient states she has a history of afib with rvr and she has been having recurrent episodes of her heart racing. Per nurse from cardiology patient was in afib with rvr in the office with a rate of 155. History of Present Illness HPI narrative: Patient is a 64-year-old with past medical history of atrial fibrillation status post ablation 5 years ago on sotalol who presents emergency department as a transfer from cardiology clinic for evaluation of rapid heart rate. History is obtained by patient at bedside, patient feels her heart go in and out of this rapid heart rate daily for many years. Her cardiology team was concerned and offered her admission which she declined so she comes here for continued evaluation. She is compliant with her medications. She takes Eliquis for anticoagulation. No trauma. No chest pain. No other acute complaints at this time. Please note that above description of symptoms, in this electronic medical record under categorization of recalled from ER triage doctor by RN are reflective of an initial nursing assessment, however, is not reflective of my full history and physical exam that was personally taken and clarified. Consequentially, this preceding description of symptoms, which may include the patient's categorized chief complaint in the EMR, do not reflect my personal clinical impression, and the ultimate description of history of present illness and patient stated complaints should be deferred to this section of the note. Unless stated otherwise or congruent with this section of the note, additional signs, symptoms, or incongruence should be interpreted as inaccurate with my clinical impression. Related Data Previous Rx's ?Medication ?Instructions ?Recorded sotalol 80 mg tablet 80 mg PO BID #60 tabs 10/22/23 rosuvastatin 40 mg tablet See Rx Instructions .Route 01/06/24 .COMPLEX #90 tabs pantoprazole 40 mg tablet,delayed 40 mg PO DAILY acid reflux #90 tabs 01/14/24 release rivaroxaban 20 mg tablet (Xarelto) See Rx Instructions .Route 06/20/24 .COMPLEX #90 tabs prednisone 20 mg tablet 20 mg PO DAILY #10 tabs 10/10/24 verapamil 240 mg 24 hr 240 mg PO DAILY Atrial 10/19/24 capsule,extended release Fibrillation #6 caps Allergies Allergy/AdvReac Type Severity Reaction Status Date / Time diltiazem (From Cardizem) AdvReac Severe sick Verified 10/19/24 15:58 [facility] Disclaimer: The information contained in this section may have been updated after the patient was seen, as this information can be updated by other users. 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 current occupational exposures/hazards: Yes caffeine: Yes Have you lived/traveled outside US in past 30 days?: No Contact w/someone who lives/traveled outside US past 30 days?: No Exposure to someone with infectious disease in past 14 days?: No Do you have a fever (greater than 100.4 F or 38 C)?: No Have you tested positive for COVID-19: No Exposed to someone with COVID-19 in past 14 days?: No Do you have a sore throat?: No Do you have a cough?: No Do you have any weakness?: No Do you have any diarrhea?: No Are you experiencing any unusual bleeding?: No Do you have any muscle aches/pain?: No Do you have any abdominal pain?: No Are you experiencing loss of taste or smell?: No Other Medical History Have you received the Flu Vaccine for this season: No Have you received the Pneumonia Vaccine: No ROS Obtained: Yes Systems reviewed as appropriate & no additional complaints except as documented Physical Exam General General appearance: alert and in no apparent distress Head Head exam: atraumatic and normocephalic Eye Eye exam: Present PERRL and EOMI ENT ENT exam: Present mucous membranes moist Neck Neck exam: Present normal inspection Chest Chest inspection: Present normal inspection and symmetric chest wall rise Respiratory Respiratory exam: Present normal lung sounds bilaterally; Absent respiratory distress Cardiovascular Cardiovascular exam: Present tachycardia and irregular rhythm Abdominal Exam Abdominal exam: Present soft; Absent tenderness Extremities Exam Extremities exam: Present normal inspection Neurological Exam Neurological exam: Present alert Psychiatric Psychiatric exam: Present normal affect Skin Skin exam: Present warm and dry Medical Decision Making Medical Records Screening: Per USPSTF and CDC recommendations, given the prevalence of disease in our region, it is our hospital?s policy to screen for HIV and viral Hepatitis for all patients aged 18 and over and those with ongoing risk factors. Brandyn Inquiry Pt receiving controlled substance: No Vital Signs: 10/19/24 15:42 10/19/24 16:00 10/19/24 16:30 Temperature 97.9 F Temperature Source Oral Pulse Rate 75 76 Pulse Rate [Radial] 75 Respiratory Rate 18 18 21 Blood Pressure 124/72 121/72 Blood Pressure [Right Arm] 141/75 H Blood Pressure Mean 97 Blood Pressure Mean [Right Arm] 97 Blood Pressure Source [Right Arm] Automatic Cuff Blood Pressure Position [Right Arm] Sitting 02 Sat by Pulse Oximetry 98 97 97 Oxygen Delivery Method Room Air Room Air 10/19/24 17:00 10/19/24 17:30 Temperature Temperature Source Pulse Rate 74 78 Pulse Rate [Radial] Respiratory Rate 21 22 Blood Pressure 115/72 139/76 Blood Pressure [Right Arm] Blood Pressure Mean 86 Blood Pressure Mean [Right Arm] Blood Pressure Source [Right Arm] Blood Pressure Position [Right Arm] 02 Sat by Pulse Oximetry 97 97 Oxygen Delivery Method Room Air Lab Data Lab Results 10/19/24 16:03: WBC 7.0, RBC 4.72, Hgb 13.5, Hct 42.0, MCV 89.0, MCH 28.6, MCHC 32.1, RDW 13.5, Plt Count 179, MPV 10.5 H, Neut % (Auto) 63.7, Lymph % (Auto) 24.1, [place] % (Auto) 8.6, Eos % (Auto) 2.9, Baso % (Auto) 0.4, Neut # (Auto) 4.4, Lymph # (Auto) 1.7, [place] # (Auto) 0.6, Eos # (Auto) 0.2, Baso # (Auto) 0.0, Sodium 142, Potassium 4.0, Chloride 106, Carbon Dioxide 30, Anion Gap 10.0, BUN 14, Creatinine 0.80, Estimated Creat Clear 91, Estimated GFR 72, Est GFR ( Amer) 88, Glucose 114 H, Calcium 9.2, Magnesium 1.7, Total Bilirubin 2.0 H, AST 26, ALT 21, Alkaline Phosphatase 68, Troponin I < 0.01, Total Protein 6.7, Albumin 4.5, Globulin 2.2, Albumin/Globulin Ratio 2.0 H, TSH 0.51, Thyroxine (T4) 9.4, HCV Ab KOFI w/Rflx PCR Qn Negative, HIV Ag/Ab Combo Qual Negative 10/19/24 16:03 10/19/24 16:03 Orders (Tests/Meds): ED MEDICATIONS Discontinued Medications Generic Name Dose Route Start Last Admin Trade Name Freq PRN Reason Stop Dose Admin Verapamil HCl 240 mg 10/19/24 16:46 10/19/24 16:49 Verapamil Sr 120mg Tablet PO 10/19/24 16:47 240 mg DAILY ONE Administration ORDERS Category Date Time Status CXR --portable [XR chest portable] Stat Exams 10/19/24 15:48 Completed POCUS Point of Care (ER Only) Stat Exams 10/19/24 15:48 Completed CBC w/Auto Diff [Complete Blood Count Auto Diff] Stat Lab 10/19/24 16:03 Completed CMP [Comprehensive Metabolic Panel] Stat Lab 10/19/24 16:03 Completed HIV Combo Stat Lab 10/19/24 16:03 Completed Hepatitis C Ab Qual. W/ RFX Stat Lab 10/19/24 16:03 Completed MG [Magnesium] Stat Lab 10/19/24 16:03 Completed T4 (Thyroxine) Stat Lab 10/19/24 16:03 Completed TSH [Thyroid Stimulating Hormone] Stat Lab 10/19/24 16:03 Completed Trop T [Troponin I] Stat Lab 10/19/24 16:03 Completed Troponin I Q3H Lab 10/19/24 19:00 Ordered Troponin I Q3H Lab 10/19/24 22:00 Ordered EKG Request [ECG Request] Stat Y 10/19/24 15:49 Ordered ECG Data Tracing #1: Independently interpreted by me rate 74, rhythm is regular, axis is normal, no ST elevation in anatomical contiguous leads, QTc 412 Tracing #2: Independently deferred by me rate is 131, rhythm is irregular, axis is normal, no ST elevation in anatomical contiguous leads, a flutter with variable block. QTc 397. Medical Decision Narrative: In summary patient is 64-year-old female past medical history described above presents emergency department for evaluation of rapid heart rate in the setting of known intermittent atrial fibrillation on sotalol. Patient is hemodynamically stable nontoxic-appearing upon arrival, afebrile, no chest pain. Upon my initial interview patient is going in and out of paroxysmal atrial fibrillation with rapid ventricular response. Secondary causes of this will be ruled out given differential includes thyroid, metabolic derangement, among others. It is more likely that she needs her sotalol adjusted and she has a primary intrinsic cardiac problem. Chest x-ray will be obtained. Initial workup reviewed by me, no significant leukocytosis or anemia CMP pending. Remainder of hematologic labs reviewed by me upon resulting and they are nonactionable, no troponin undetectably low thyroid studies normal no NAYE or critical electrolyte abnormality. Chest x-ray no acute findings. An active discussion with Dr. Sharma with cardiology regarding management. We will initiate 240 mg of extended release verapamil and see if the patient achieves rate control and can be managed as an outpatient. The patient was placed in observation status at 5:30 PM. Medical necessity for observational status is continued cardiac monitoring to ensure rate control. The patient was provided serial reevaluations and cardiac monitoring while awaiting results. Results of observation remarkable for continued rate control patient on multiple evaluations had heart rate in the 70s. Given this patient is appropriate for discharge at this time will be discharged with daily dose of verapamil we will follow-up Thursday morning with Dr. Sharma. Procedure: Procedure performed was cardiac ultrasound. Procedure performed by Brandt Chau Indication: Rapid heart rate Identified cardiac views: Cardiac parasternal long parasternal short axis Findings: Cardiac activity present, gross wall motion normal, pericardial effusion absent, right heart strain absent. Impression: -From above Images were saved to permanent archive The study was technically adequate CPT: 85802 This study was performed by me, and I personally interpreted all images/videos. Based on my clinical judgement, these images were adequate and did not necessitate further imaging. Critical Care Critical Care Time Critical Care Time: No
[2024-10-19 16:09] LABS: Basophils % 0.4 % (0.1-2.0); Eosinophils # 0.2 K/mm3 (0.0-0.4); Eosinophils % 2.9 % (0.1-12.0); Hemoglobin 13.5 g/dL (12.2-16.2); Lymphocytes # 1.7 K/mm3 (0.7-4.5); Lymphocytes % 24.1 % (10-50); Mean Corpuscular HGB Conc 32.1 g/dL (31.8-35.4); Mean Corpuscular Hemoglobin 28.6 pg (27.0-31.2); Mean Platelet Volume 10.5 fl (7.4-10.4); Monocytes # 0.6 K/mm3 (0.1-1.0); Monocytes % 8.6 % (1.7-9.3); Neutrophils # 4.4 K/mm3 (1.8-7.8); Neutrophils % 63.7 % (37.0-80.0); Platelet Count 179 K/mm3 (142-424); Red Blood Count 4.72 M/mm3 (4.20-5.40); Red Cell Distribution Width 13.5 % (11.5-17.5)
[2024-10-19 16:14] LABS: Chloride 106 mmol/L (98-107)
[2024-10-19 16:15] LABS: Albumin Level 4.5 g/dl (3.5-5.0); Sodium 142 mmol/L (136-145)
[2024-10-19 16:18] LABS: Alanine Aminotransferase 21 U/L (12-78); Alkaline Phosphatase 68 U/L (38-126); Aspartate Amino Transferase 26 U/L (14-36); Blood Urea Nitrogen 14 mg/dl (7-17); Calcium 9.2 mg/dl (8.4-10.2); Carbon Dioxide 30 mmol/L (22.0-30.0); Creatinine Clearance Estimated 91 mL/min (50-200); Estimated Glomerular Filt Rate 72 ml/min (>60); GFR (African American) 88 ML/MIN (>60); Globulin 2.2 g/dL (1.3-3.2); Glucose 114 mg/dl (74-100); Magnesium 1.7 mg/dl (1.6-2.3); Total Protein,Serum 6.7 g/dl (6.3-8.2)
--- NOTE | 2024-10-19 16:18 | ECG_ITS ---
APPROVED REPORT Exam: Resting ECG HR:131 bpm ECG Measurements Heart Rate 131 AXES QRSd 78 QRS 31 QT 320 T 56 QTc 397 Conclusion ATRIAL FLUTTER/TACHYCARDIA WITH RAPID VENTRICULAR RESPONSE MODERATE ST DEPRESSION [0.05+ mV ST DEPRESSION] ABNORMAL ECG No STEMI Electronically signed by : KENNEDY ROWLAND, 10/20/2024 07:08:07
--- NOTE | 2024-10-19 16:25 | PC.NURSE ---
rounded on the pt. the pt voices that she does not need anything at this time. call light is within reach of the pt. family member is present at the bedside.
[2024-10-19 16:36] LABS: T4 (Thyroxine) 9.4 ug/dl (5.53-11.0)
[2024-10-19 16:42] LABS: Troponin I < 0.01 ng/ml (0.00-0.034)
[2024-10-19 16:49] LABS: Thyroid Stimulating Hormone 0.51 uIU/mL (0.465-4.68)
[2024-10-19] MEDS: VERAPAMIL SR 120MG TABLET 240 MG PO (16:49)
[2024-10-19 18:18] LABS: HIV Combo NEGATIVE (Negative)
[2024-10-19 18:26] LABS: Hepatitis C Ab Qual. W/ RFX NEGATIVE (Negative)
== END 2024-10-19 18:42 | disposition home or self-care (01) ==
PROVIDERS: Emergency Provider Emergency Medicine; PCP Family Medicine
DX: I48.0 Paroxysmal atrial fibrillation (principal)
CPT/HCPCS: 71045; 80053; 83735; 84436; 84443; 84484; 85025; 86803; 87389; 93005; 99284

== ENCOUNTER 2024-10-24 13:25 | Outpatient (CLI) | payer OTHER, SELFPAY | END 2024-10-24 23:59 | disposition home or self-care (01) | LOC: RT 13:26 | PROVIDERS: PCP Family Medicine; Visit Provider Internal Medicine | DX: I48.0 Paroxysmal atrial fibrillation (principal) | CPT/HCPCS: 93270 ==

== ENCOUNTER 2024-11-16 06:34 | Outpatient (CLI) | payer OTHER, SELFPAY ==
--- NOTE | 2024-11-16 | CA_ITS ---
APPROVED REPORT Exam: Pharmacologic Technologist: Sarahi Robledo Ht: 5 ft 7 in Wt: 221 lbs BSA: 2.11 m2 HR: 51 bpm BP: 126/92 mmHg Stress Test Details Test: Lexiscan HR Resting HR: 151 bpm Max Heart Rate (APMHR): 157.843142 bpm Max HR Achieved: 164 bpm Target HR (85% APMHR): 133.400104 bpm % of APMHR: 104.46 Recovery HR: 158 bpm BP Resting BP: 126.0/92.0 mmHg Max BP: 149.0/91.0 mmHg Recovery BP: 149.0/91.0 mmHg ECG Resting ECG: Atrial fibrillation with RVR Stress ECG Conclusion Symptoms: None Arrhythmias/Ectopy: None ST-T Changes: < 1.[address] segment changes. Conclusion: Non-diagnostic Lexiscan stress. Electronically signed by : Ana M Chang MD 11/17/2024 12:03:45
--- NOTE | 2024-11-16 06:40 | NM_ITS ---
APPROVED REPORT Exam: Nuclear Stress Test Indication: hyperlipidemia, fm hx, sob, fatigue, a-fib Patient Location: Outpatient Stress Tech: Sarahi Robledo [place] Tech:Kylah Richardson GEOVANNY RT (R)(N)(M) Ht: 5 ft 7 in Wt: 220 lbs Bra Size: 40c HR: 161 bpm BP: 126/92 mmHg BSA: 2.11 m2 TID: 1.77 BMI: 34.4 History: hyperlipidemia, fm hx, sob, fatigue, a-fib Procedure: Patient received 0.4 mg of intravenous , resting heart rate 161 bpm, resting blood pressure 126/92 mmHg, with Lexiscan maximum heart rate achieved was 163 bpm which is % of the maximum predicted heart rate and blood pressure was 123/82 mmHg. With Lexiscan, patient denied any complaint of chest pain. Cardiac Stress and Resting SPECT Images: Cardiac Stress and Resting SPECT images were obtained using technetium 99m Myoview 30.5 mCi stress and 10.97 mCi at rest. Resting and stress imaging in supine and prone positions demonstrate no evidence of fixed or reversible perfusion defects. There is marked increase in transient ischemic dilatation ratio (TID 1.77), suggestive of possible multivessel disease or balanced ischemia. Gated imaging demonstrates moderate reduction in global LV systolic function. LVEF is calculated at 33%. Conclusion: No evidence of fixed or reversible perfusion defects. There is marked increase in transient ischemic dilatation ratio (TID 1.77), suggestive of possible multivessel disease or balanced ischemia. Gated imaging demonstrates moderate reduction in global LV systolic function. LVEF is calculated at 33%. Electronically signed by : Ana M Chang MD 11/17/2024 12:27:52
[2024-11-16] MEDS: SODIUM CHLORIDE 0.9% 10ML SYR (RAD ONLY) 10 ML IV ×2 (06:55→08:50)
--- NOTE | 2024-11-16 08:30 | CA_ITS ---
APPROVED REPORT EXAM: Comprehensive 2D, Doppler, and color-flow Echocardiogram Improvement Director: Mira Ruggiero RVT Ht: 5 ft 7 in Wt: 221lbs BSA: 2.11 BP: 131/61 mmHg Indications: A-FIB,DYSPENA,FATIGUE,CP,ABN EKG,HLD 2D Dimensions IVSd 1.06 cm F: 0.6-1.0 LVEF (Visual) 60.70 % PWd 0.79 cm F: 0.6 - 1.0 LA Volume 87.50 mL LVDd 3.53 cm F: 3.9 - 5.3 LA Volume Index 41.47 mL/m2 (M/F) 16-34 LVDs 2.41 cm F: 2.2 - 3.5 EF AP4 40.10 % Left Atrium 4.58 cm F: 2.7 - 3.8 GL Strain -12.7 % RVID Base (AP4) 2.60 cm (M/F) 2.5-4.1 LVOT 2.13 cm (M/F) 1.5-2.5 M-Mode Dimensions LVDd 3.53 cm (3.5-5.7) Ao Diam 2.68 cm (2.0-3.7) LVDs 2.41 cm (3.5-5.7) IVSd 1.06 cm (0.6-1.1) PWd 0.79 cm (0.6-1.1) FS 31.70% TAPSE 1.92 (<1.7) LV Diastology MED E' 9.5 (>= 7 cm/sec) LAT E' 10.0 (>= 10 cm/sec) Aortic Valve LVOT Max 67.0 (70-110 cm/s) MARU Index 1.31 cm2/m2 LVOT VTI 14.88 cm AoV Peak Ten. 99.0 (50-130 cm/s) AO Peak GR. 4.00 mmHg AO Mean GR. 2.60 (<5 mmHg) AO VTI 19.1 (18-25 cm) MARU (VTI) 2.77 (2.5-4.5 cm2) Tricuspid Valve TR P. Velocity 219.00 cm/s RAP Estimate 10.00 mmHg RVSP 29.20 mmHg Left Ventricle The left ventricle is normal size. The left ventricular systolic function is mildly to moderately reduced. There is increased LV wall thickness. There is mild to moderate global hypokinesis present. Grade 1 diastolic dysfunction is present. LVEF is 40%. Right Ventricle Right ventricle is mildly dilated. The right ventricular systolic function is normal. Atria Left atrium is mildly dilated. Right atrium is mildly dilated. There is no Doppler evidence of interatrial shunt. Aortic Valve Aortic valve is mildly thickened. There is no aortic valvular stenosis. No aortic regurgitation is present. Mitral Valve The mitral valve is normal in structure. No evidence of mitral valve stenosis. Mild mitral regurgitation. Tricuspid Valve Tricuspid valve is grossly normal in structure and function. Trace tricuspid regurgitation. There is insufficient TR jet to estimate RVSP. Pulmonic Valve The pulmonary valve is normal in structure. Trace pulmonic regurgitation. Great Vessels The aortic root is normal in size. IVC is normal in size and collapses >50% with inspiration. Pericardium There is no pericardial effusion. Other Information Study Quality: Fair Conclusion Mild to moderate reduction in LV systolic function (LVEF 40%). Mild RV dilation with normal RV function. Biatrial dilation. Mild MR. Electronically signed by : Ana M hCang MD 11/27/2024 23:28:10
[2024-11-16] MEDS: REGADENOSON 0.4MG/5ML SYRINGE 0.4 MG IV (08:50)
[2024-11-16] MEDS: ISOTOPE MYOVIEW (PER STUDY) 1 DOSE IV (09:57)
== END 2024-11-16 23:59 | disposition home or self-care (01) ==
PROVIDERS: PCP Family Medicine; Visit Provider Internal Medicine
DX: R53.83 Other fatigue (principal); I20.89 Other forms of angina pectoris; I48.92 Unspecified atrial flutter
CPT/HCPCS: 78452; 93017; 93018; 93306; A9502; J2785

== ENCOUNTER 2024-11-28 08:34 | Day surgery (SDC) | payer OTHER, SELFPAY ==
[2024-11-28] VITALS (13 sets, daily range): BP systolic 86–156; BP diastolic 49–83; PULSE 47–70; RESP 14–20; O2SAT 91–100; BMI 34.2
--- NOTE | 2024-11-28 07:05 | IR_ITS ---
APPROVED REPORT Patient Location: Outpatient PROCEDURES Left heart catheterization Left ventriculogram Selective coronary angiogram Drug-eluting stent deployment in the large first obtuse marginal artery off the dominant circumflex artery INDICATION Coronary artery disease, Abnormal Myoview, Angina pectoris Informed consent was obtained prior to the procedure. COMPLICATIONS NONE Estimated Blood Loss: LESS THAN 10 ML TECHNIQUE One percent lidocaine used to anesthetize the right anterior aspect of the wrist. The right radial artery was accessed via the Seldinger technique. A 6 Croatian sheath was placed in the right radial artery. 2.5 mg of Verapamil, 800 mcg of nitroglycerin, 1mg Lidocaine and 5000 U Heparin were given through the arterial sheath. The 6 Croatian JL 3 guide catheter was also used to perform left heart catheterization, left ventriculogram and selective coronary angiogram. At the end the diagnostic angiogram therapeutic heparin was administered giving a therapeutic ACT and the guide cath was placed in left main artery followed by Choice PT export wire down the first obtuse marginal artery. A 3 mm x 30 mm Xavier frontier stent was placed in the proximal segment of the first obtuse marginal artery and then deployed at 12 donna reducing the stenosis to 0%. JOLLY-3 flow was present before and after the procedure. At the end the procedure the apparatus was removed the sheath was removed hemostasis was achieved using TR banding patient was transferred to the postop putting in stable condition ANGIOGRAPHIC RESULTS The left main artery Normal The left anterior descending artery Is free of angiographic evidence of atherosclerosis however JOLLY II flow was present down the entire vessel The circumflex artery Large dominant proximally normal and then has a 70% concentric stenosis throughout the proximal and midportion of a large first obtuse marginal artery The right coronary artery Vestigial normal The DAVIS ventriculogram reveals Preserved at 55% The left ventricular end-diastolic pressure 25 mmHg IMPRESSION Slow flow down the LAD as described above most consistent with endothelial dysfunction and elevated LVEDP Severe disease in a large first obtuse marginal artery with successful stenting reducing lesion to 0% with 1 drug-eluting stent Preserved ejection fraction of 55% which is disparate from the Myoview Elevated LVEDP PLAN 1. Effient and aspirin 2. LDL less than 55 achieved with high intensity statin 3. Treatment of diastolic dysfunction which may be contributing to the slow flow down the LAD 4. Formal echocardiogram to better evaluate ejection fraction. It does not appear as though the ejection fraction is as low as reported on Myoview 5. Cardiac rehabilitation 6. Consider sleep study 7. Avoidance of tobacco products Electronically signed by : Prince Sharma MD 11/28/2024 11:14:20
[2024-11-28 09:05] LABS: Basophils # 0.1 K/mm3 (0-0.2); Basophils % 0.6 % (0.1-2.0); Eosinophils # 0.3 K/mm3 (0.0-0.4); Eosinophils % 3.5 % (0.1-12.0); Hematocrit 44.9 % (37.0-47.0); Hemoglobin 14.5 g/dL (12.2-16.2); Lymphocytes # 2.3 K/mm3 (0.7-4.5); Lymphocytes % 26.3 % (10-50); Mean Corpuscular HGB Conc 32.3 g/dL (31.8-35.4); Mean Corpuscular Hemoglobin 29.2 pg (27.0-31.2); Mean Corpuscular Volume 90.3 fl (81-99); Mean Platelet Volume 10.3 fl (7.4-10.4); Monocytes # 0.7 K/mm3 (0.1-1.0); Monocytes % 7.6 % (1.7-9.3); Neutrophils # 5.4 K/mm3 (1.8-7.8); Neutrophils % 61.8 % (37.0-80.0); Platelet Count 184 K/mm3 (142-424); Red Blood Count 4.97 M/mm3 (4.20-5.40); Red Cell Distribution Width 13.2 % (11.5-17.5); White Blood Count 8.7 K/mm3 (4.8-10.8)
[2024-11-28 09:08] LABS: Chloride 105 mmol/L (98-107); Potassium 3.8 mmoL/L (3.5-5.1); Sodium 143 mmol/L (136-145)
[2024-11-28 09:10] LABS: Blood Urea Nitrogen 13 mg/dl (7-17); Creatinine Clearance Estimated 90 mL/min (50-200); Estimated Glomerular Filt Rate 101 ml/min (>60); GFR (African American) 122 ML/MIN (>60)
[2024-11-28 09:11] LABS: Anion Gap 13.8 mEq/L (5-15); Calcium 9.4 mg/dl (8.4-10.2); Carbon Dioxide 28 mmol/L (22.0-30.0); Glucose 116 mg/dl (74-100)
[2024-11-28] MEDS: HEPARIN 1,000 UNITS/500ML NS (CATH LAB) 3000 UNIT IV (10:55)
[2024-11-28] MEDS: NITROGLYCERIN 800MCG/8ML SYR (CATH LAB) 800 MCG IA (10:55)
[2024-11-28] MEDS: HEPARIN 1,000 UNITS/ML 10ML VIAL (CATH LAB) 10000 UNIT IV (10:55)
[2024-11-28] MEDS: diphenhydrAMINE 50MG/ML VIAL 50 MG IV (10:55)
[2024-11-28] MEDS: 0.9 % SODIUM CHLORIDE 500 ML 25 ML IV (10:55)
[2024-11-28] MEDS: LIDOCAINE 1% 10ML MDV 20 ML IJ (10:55)
[2024-11-28] MEDS: MIDAZOLAM HCL 1MG/ML 5ML VIAL 1 MG IV (10:56)
[2024-11-28] MEDS: VERAPAMIL 2.5MG/ML 2ML VIAL 2.5 MG IV (10:56)
[2024-11-28] MEDS: FENTANYL 100MCG/2ML VIAL 50 MCG IV (10:56)
[2024-11-28] MEDS: CLOPIDOGREL 300MG TABLET 600 MG PO (11:23)
[2024-11-28] MEDS: IOPAMIDOL-370 (76%);100ML BOTTLE 80 ML IV (13:54)
--- NOTE | 2024-11-28 14:13 | SUR.PHASEII ---
No herminia or arb per MD
[2024-11-28 14:20] LABS: CATHL Activated Clotting Time > 400 SEC (74-125)
== END 2024-11-28 14:13 | disposition home or self-care (01) ==
LOC: CATHLAB 08:36
PROVIDERS: PCP Family Medicine; Visit Provider Internal Medicine
DX: I25.118 Atherosclerotic heart disease of native coronary artery with other forms of angina pectoris (principal); R94.39 Abnormal result of other cardiovascular function study; Z95.5 Presence of coronary angioplasty implant and graft; I48.91 Unspecified atrial fibrillation; I50.20 Unspecified systolic (congestive) heart failure; E78.5 Hyperlipidemia, unspecified; Z88.8 Allergy status to other drugs, medicaments and biological substances; Z79.01 Long term (current) use of anticoagulants; I77.1 Stricture of artery
CPT/HCPCS: 80048; 85025; 85347; 92928; 93458; 99152; C1725; C1769; C1874; C9600; J1200; J1644; J3010; Q9967

== ENCOUNTER 2024-12-01 12:48 | Outpatient (CLI) | payer OTHER, SELFPAY ==
[2024-12-01 13:15] LABS: Basophils % 0.4 % (0.1-2.0); Eosinophils # 0.3 K/mm3 (0.0-0.4); Eosinophils % 3.1 % (0.1-12.0); Hematocrit 46.3 % (37.0-47.0); Hemoglobin 15.3 g/dL (12.2-16.2); Lymphocytes # 2.1 K/mm3 (0.7-4.5); Lymphocytes % 25.7 % (10-50); Mean Corpuscular Hemoglobin 28.6 pg (27.0-31.2); Mean Corpuscular Volume 86.5 fl (81-99); Mean Platelet Volume 10.7 fl (7.4-10.4); Monocytes # 0.7 K/mm3 (0.1-1.0); Monocytes % 8.1 % (1.7-9.3); Neutrophils % 62.5 % (37.0-80.0); Nucleated Red Blood Cells # 0 10^3/uL; Nucleated Red Blood Cells % 0 %; Platelet Count 184 K/mm3 (142-424); Red Blood Count 5.35 M/mm3 (4.20-5.40); Red Cell Distribution Width-SD 40.1 fL
[2024-12-01 13:50] LABS: Chloride 105 mmol/L (98-107)
[2024-12-01 13:51] LABS: Sodium 142 mmol/L (136-145)
[2024-12-01 13:54] LABS: Blood Urea Nitrogen 12 mg/dl (7-17); Calcium 10.3 mg/dl (8.4-10.2); Carbon Dioxide 24 mmol/L (22.0-30.0); Estimated Glomerular Filt Rate 85 ml/min (>60); GFR (African American) 102 ML/MIN (>60); Glucose 127 mg/dl (74-100)
== END 2024-12-01 23:59 | disposition home or self-care (01) ==
LOC: LAB 12:48
PROVIDERS: PCP Family Medicine; Visit Provider Internal Medicine
DX: Z95.5 Presence of coronary angioplasty implant and graft (principal)
CPT/HCPCS: 36415; 80048; 85025

== ENCOUNTER 2024-12-20 15:25 | Outpatient (CLI) | payer OTHER, SELFPAY ==
[2024-12-20 19:39] LABS: Anion Gap 9.8 mEq/L (5-15); Blood Urea Nitrogen 15 mg/dl (7-17); Calcium 9.7 mg/dl (8.4-10.2); Carbon Dioxide 29 mmol/L (22.0-30.0); Chloride 105 mmol/L (98-107); Estimated Glomerular Filt Rate 85 ml/min (>60); GFR (African American) 102 ML/MIN (>60); Glucose 83 mg/dl (74-100); Potassium 4.8 mmoL/L (3.5-5.1); Sodium 139 mmol/L (136-145)
== END 2024-12-20 23:59 | disposition home or self-care (01) ==
LOC: LAB 15:26
PROVIDERS: PCP Family Medicine; Visit Provider Internal Medicine
DX: I25.10 Atherosclerotic heart disease of native coronary artery without angina pectoris (principal)
CPT/HCPCS: 36415; 80048

== ENCOUNTER 2025-05-04 15:29 | Outpatient (CLI) | payer OTHER, SELFPAY ==
--- OUTSIDE RECORDS SUMMARY | 2025-05-04 15:31 | XMS_ITS | Clinical Summary ---
Author Organization [facility] [place] Address [address] [place] [address] Phone Care Team Providers Care Computer Compositor Name Role Phone Pal Shin MD Primary Care Provider [phone] Allergies No known active allergies Medications pantoprazole (PROTONIX) 40 mg Oral Tablet, Delayed Release (E.C.) Take 40 mg by mouth daily. 05/08/2022 Active GAVILYTE-G 236-22.74-6.74 -5.86 gram Oral Recon Soln Take 25 mL/kg/hr by mouth once. 01/28/2022 Active XARELTO 20 mg Oral Tablet Take 20 mg by mouth daily. 05/08/2022 Active rosuvastatin (CRESTOR) 40 mg Oral Tablet Take 40 mg by mouth nightly. 05/08/2022 Active potassium chloride SA (KLOR-CON M) 10 mEq Oral Tab Sust.Rel. Particle/Crystal 11/12/2022 Ac tive fUROsemide (LASIX) 40 mg Oral Tablet 11/12/2022 Active sotaloL (BETAPACE) 80 mg Oral TabletIndication s:Atrial flutter, unspecified type (HCC) TAKE 1 TABLET BY MOUTH EVERY 12 HOURS 180 Tablet 07/18/2024 Active Active Problems Problem Noted Date Diagnosed Date Anticoagulated 08/13/2022 S/P ablation of atrial flutter 06/23/2022 Atrial fibrillation Atrial flutter Resolved Problems Problem Noted Date Diagnosed Date Resolved Date Encounter for monitoring sotalol therapy 06/24/2022 08/13/2022 Medical History Medical History Date Comments Atrial fibrillation (HCC) Atrial flutter (HCC) Social History Tobacco Use Types Packs/Day Years Used Date Smoking Tobacco: Former Smokeless Tobacco: Never Tobacco Cessation:Counseling Given: Not Answered Alcohol Use Standard Drinks/Week Comments Not Currently 0 (1 standard drink = 0.6 oz pur e alcohol) Comments No Sex and Gender Information Value Date Recorded Sex Assigned at Not on file Legal Sex Female 4:03 AM EDT Gender Identity Not on file Sexual Orientation Not on file Obstetrics History Last Filed Vital Signs Vital Sign Reading Time Taken Comments Blood Pressure 122/68 11/14/2022 2:06 PM EDT Pulse 64 11/14/2022 2:06 PM EDT Temperature 36.9 C (98.5 F) 06/24/2022 5:45 AM EDT Respiratory Rate 16 06/24/2022 2:00 PM EDT Oxygen Saturation 98% 11/14/2022 2:06 PM EDT Inhaled Oxygen Concentration - - Weight 93.9 kg (207 lb) 11/14/2022 2:06 PM EDT Height 170.2 cm (5' 7 ) 08/13/2022 2:45 PM EST Body Mass Index 32.42 08/13/2022 2:45 PM EST Plan of Treatment Health Maintenance Due Date Last Done Comments Annual Wellness Exam 1964 Hepatitis C Screening 1979 DTaP/TDaP/Td (1 - Tdap) 1980 Cervical Cancer Screening 1982 Pap Smear 1982 HPV/Pap Cotest 1991 Breast Cancer Screening 2001 Cologuard 2006 Colon Cancer Screening 2006 Colonoscopy 2006 FIT 2006 Sigmoidoscopy 2006 Virtual Colonography 2006 Hepatitis B Vaccine (2 of 3 - 19+ 3-dose series) 01/28/2011 12/31/2010 Pneumococcal Vaccine 50+ (1 of 1 - PCV) 2011 Zoster (1 of 2) 2011 RSV or 60+ (1 - Ris k 60-74 years 1-dose series) 2021 COVID-19 Vaccine (3 - 2024-2 6 season) 2025 06/12/2022, 08/20/2021 Influenza Vaccine (#1) 2025 06/12/2022 Meningococcal B Vaccine Aged Out No l onger eligible based on patient's age to complete this topic Insurance ANTHEM PPO ANTHEM PPO Care Teams Computer Compositor Relationship Specialty Start Date End Date Pal Shin MD PCP - General Family Medicine 06/23/22
[2025-05-04 15:44] LABS: Hematocrit 42.5 % (37.0-47.0); Hemoglobin 13.9 g/dL (12.2-16.2); Immature Granulocytes % 0.3 %; Mean Corpuscular HGB Conc 32.7 g/dL (31.8-35.4); Mean Corpuscular Hemoglobin 29.0 pg (27.0-31.2); Mean Corpuscular Volume 88.7 fl (81-99); Nucleated Red Blood Cells % 0 %; Platelet Count 214 K/mm3 (142-424); Red Blood Count 4.79 M/mm3 (4.20-5.40); Red Cell Distribution Width-SD 43.1 fL; White Blood Count 9.1 K/mm3 (4.8-10.8)
[2025-05-04 16:10] LABS: Albumin Level 4.8 g/dl (3.5-5.0); Chloride 105 mmol/L (98-107); Potassium 4.2 mmoL/L (3.5-5.1); Sodium 140 mmol/L (136-145)
[2025-05-04 16:12] LABS: Blood Urea Nitrogen 18 mg/dl (7-17); Creatinine,Serum 0.80 mg/dl (0.52-1.04); Estimated Glomerular Filt Rate 72 ml/min (>60); GFR (African American) 88 ML/MIN (>60)
[2025-05-04 16:13] LABS: Alanine Aminotransferase 15 U/L (12-78); Alkaline Phosphatase 63 U/L (38-126); Anion Gap 12.2 mEq/L (5-15); Aspartate Amino Transferase 25 U/L (14-36); Bilirubin,Direct 0.0 mg/dl (0.0-0.4); Bilirubin,Indirect 2.2 mg/dL (0.0-0.9); Bilirubin,Total 2.2 mg/dl (0.2-1.3); Bilirubin,Unconjugated 2.2 mg/dL (0.0-1.1); Calcium 9.9 mg/dl (8.4-10.2); Carbon Dioxide 27 mmol/L (22.0-30.0); Cholesterol 135 mg/dl (140-200); Glucose 95 mg/dl (74-100); Magnesium 1.9 mg/dl (1.6-2.3); Total Protein,Serum 7.4 g/dl (6.3-8.2); Triglycerides 136 mg/dl (30-150)
[2025-05-04 16:14] LABS: HDL Cholesterol 61 mg/dl (40-60)
[2025-05-04 16:30] LABS: Free T4 (Free Thyroxine) 1.14 ng/dl (0.78-2.19)
[2025-05-04 17:43] LABS: Thyroid Stimulating Hormone 0.40 uIU/mL (0.465-4.68)
== END 2025-05-04 23:59 | disposition home or self-care (01) ==
LOC: LAB 15:29
PROVIDERS: PCP Family Medicine; Visit Provider Internal Medicine
DX: I25.10 Atherosclerotic heart disease of native coronary artery without angina pectoris (principal); I48.91 Unspecified atrial fibrillation; E78.5 Hyperlipidemia, unspecified; I50.20 Unspecified systolic (congestive) heart failure; R94.31 Abnormal electrocardiogram [ECG] [EKG]; R20.0 Anesthesia of skin
CPT/HCPCS: 36415; 80048; 80061; 80076; 83735; 84439; 84443; 85025

== ENCOUNTER 2025-05-16 07:34 | Outpatient (CLI) | payer OTHER, SELFPAY ==
--- NOTE | 2025-05-16 | CA_ITS ---
APPROVED REPORT Exam: Pharmacologic Technologist: Katerine Toth Ht: 5 ft 7 in Wt: 215 lbs BSA: 2.09 m2 HR: 52 bpm BP: 111/61 mmHg Medical History Medications: Plavix, Lasix, Isosorbide Mononitrate ER, Toprol XL, Pantoprazole, Xarelto, Rostuvastatin, Sotalol, Spironolactone. Stress Test Details Test: Lexiscan Reason for pharmacologic stress test: physical limitation. HR Resting HR: 52 bpm Max Heart Rate (APMHR): 156.957463 bpm Max HR Achieved: 71 bpm Target HR (85% APMHR): 132.229485 bpm % of APMHR: 45.51 Recovery HR: 61 bpm BP Resting BP: 111.0/61.0 mmHg Max BP: 118.0/59.0 mmHg Recovery BP: 109.0/55.0 mmHg ECG Stress ECG Conclusion Symptoms: Dyspnea. Arrhythmias/Ectopy: None. ST-T Changes: less than 0.5mm upsloping ST segment changes. Conclusion: Nondiagnostic ECG/Lexiscan. Electronically signed by : Ana M Chang MD 05/16/2025 11:44:35
--- OUTSIDE RECORDS SUMMARY | 2025-05-16 07:36 | XMS_ITS | Clinical Summary ---
Author Organization [facility] [place] Address [address] [place] [address] Phone Care Team Providers Care Field Aide Name Role Phone Pal Shin MD Primary Care Provider [phone] Allergies No known active allergies Medications pantoprazole [...] Insurance ANTHEM PPO ANTHEM PPO Care Teams Field Aide Relationship Specialty Start Date End Date Pal Shin MD PCP - General Family Medicine 06/23/22
[2025-05-16] MEDS: SODIUM CHLORIDE 0.9% 10ML SYR (RAD ONLY) 10 ML IV ×2 (07:40→09:30)
--- NOTE | 2025-05-16 08:00 | NM_ITS ---
APPROVED REPORT Exam: Nuclear Stress Test Indication: cad, hyperlipidemia, fm hx, edema, sob Patient Location: Outpatient Stress Tech: Katerine Parks [place] Tech:Kylah Richardson GEOVANNY RT (R)(N)(M) Ht: 5 ft 7 in Wt: 215 lbs Bra Size: c HR: 52 bpm BP: 111/61 mmHg BSA: 2.09 m2 TID: 1.16 BMI: 33.6 History: cad, hyperlipidemia, fm hx, edema, sob Procedure: Patient received 0.4 mg of intravenous Lexiscan, resting heart rate 52 bpm, resting blood pressure 111/61 mmHg, with Lexiscan maximum heart rate achieved was 71 bpm which is % of the maximum predicted heart rate and blood pressure was 111/53 mmHg. With Lexiscan, patient denied any complaint of chest pain. Cardiac Stress and Resting SPECT Images: Cardiac Stress and Resting SPECT images were obtained using technetium 99m Myoview 31.6 mCi stress and 10.93 mCi at rest. Resting and stress imaging in supine and prone positions demonstrate no evidence of fixed or reversible perfusion defects. Gated imaging demonstrates normal global and regional LV systolic function. LVEF is calculated at 60%. Conclusion: No evidence of fixed or reversible perfusion defects. Gated imaging demonstrates normal global and regional LV systolic function. LVEF is calculated at 60%. Electronically signed by : Aan M Chang MD 05/16/2025 11:44:11
[2025-05-16 09:00] VITALS: BP 111/61; PULSE 52; RESP 14
[2025-05-16] MEDS: ISOTOPE MYOVIEW (PER STUDY) 1 DOSE IV (10:46)
== END 2025-05-16 23:59 | disposition home or self-care (01) ==
LOC: RAD 07:34
PROVIDERS: PCP Family Medicine; Visit Provider Internal Medicine
DX: I25.10 Atherosclerotic heart disease of native coronary artery without angina pectoris (principal); R20.0 Anesthesia of skin; I48.91 Unspecified atrial fibrillation; E78.5 Hyperlipidemia, unspecified; R94.31 Abnormal electrocardiogram [ECG] [EKG]; I50.20 Unspecified systolic (congestive) heart failure
CPT/HCPCS: 78452; 93017; 93018; A9502; J2785